=== PATIENT | female | born 1940 | race Caucasian/White ===

== ENCOUNTER 2016-09-23 10:27 | Inpatient (IN) | END 2016-09-26 15:15 | disposition home or self-care (01) | DRG 871 | DX: A41.9 Sepsis, unspecified organism (principal); G93.41 Metabolic encephalopathy; N39.0 Urinary tract infection, site not specified; F03.90 Unspecified dementia, unspecified severity, without behavioral disturbance, psychotic disturbance, mood disturbance, and anxiety; E11.9 Type 2 diabetes mellitus without complications; D64.9 Anemia, unspecified; B96.1 Klebsiella pneumoniae [K. pneumoniae] as the cause of diseases classified elsewhere; E03.9 Hypothyroidism, unspecified; Z95.0 Presence of cardiac pacemaker ==

== ENCOUNTER 2017-04-07 10:38 | Observation (INO) | payer MEDICARE, OTHER ==
[~2017-04-07] VITALS: Ht 167.6 cm; Wt 59.9 kg
[~2017-04-07 10:38] MED LIST: AMLO2.5T2 PO; ASPI-664 PO; LEVO500T72 PO; LEVO75TA5 PO; METF500T4 PO; MULTI PO; OLAN10TA7 PO; OLAN5TAB5 PO; RISP1TAB3 PO; SIMV40TA2 PO
[2017-04-07] MEDS ORDERED: SOD CHLORIDE 0.9% 1,000 ML IV STA (10:49)
--- NOTE | 2017-04-07 11:59 | RADRPT ---
PROCEDURE: XR Chest. CLINICAL INDICATION: Altered mental status .. Dyspnea TECHNIQUE: Single frontal chest x-ray. COMPARISON: 09/23/2016 FINDINGS: The lungs are clear of acute infiltrates, edema, effusions, or masses. There is a right-sided dual c hamber cardiac pacer in place unchanged. Calcific atherosclerosis of the aorta and mitral valve is p resent.. Mild cardiomegaly is unchanged.. The osseous structures are intact. IMPRESSION: No acute cardiopulmonary disease. Mild cardiomegaly with right-sided cardiac pacer. Calcific atherosclerosis of the aorta and mitral valve. RPTAT: GG .Frank Guzman MD, MD Date Time Electronically viewed and signed by .Frank Guzman MD, MD on 04/07/2017 11:59 .L/
[2017-04-07 12:01] LABS: BASOPHILS % 0.5 % (0.0-2.0); EOSINOPHILS % 0.5 % (0.0-7.0); HEMATOCRIT 33.6 % (37.0-47.0); HEMOGLOBIN 11.5 g/dl (12.0-16.0); LYMPHOCYTES # 1.2 10^3/ul (0.8-2.9); LYMPHOCYTES % 21.1 % (15.0-51.0); MEAN CORPUSCULAR HEMOGLOBIN 32.4 pg (29.0-33.0); MEAN CORPUSCULAR HGB CONC 34.2 g/dl (32.0-37.0); MEAN CORPUSCULAR VOLUME 94.6 fl (82.0-101.0); MEAN PLATELET VOLUME 11.6 fl (7.4-10.4); MONOCYTE # 0.5 10^3/ul (0.3-0.9); MONOCYTES % 8.6 % (0.0-11.0); NEUTROPHIL # 3.9 10^3/ul (1.6-7.5); NEUTROPHILS % 67.6 % (39.0-77.0); PLATELET COUNT 226 10^3/UL (140-415); RED BLOOD COUNT 3.55 10^6/ul (4.20-5.40); RED CELL DISTRIBUTION WIDTH 12.8 % (11.5-14.5); WHITE BLOOD COUNT 5.8 10^3/ul (4.8-10.8)
[2017-04-07 12:11] LABS: INR 0.91; PROTIME 12.3 Sec (12.2-14.2)
[2017-04-07 12:12] LABS: PARTIAL THROMBOPLASTIN TIME 22.4 Sec (25.0-35.0)
[2017-04-07 12:17] LABS: ALANINE AMINOTRANSFERASE 29 IU/L (13-69); ALBUMIN 3.7 g/dl (3.3-4.9); ALBUMIN/GLOBULIN RATIO 1.12; ALKALINE PHOSPHATASE 67 IU/L (42-121); ANION GAP 13 (8-16); ASPARTATE AMINO TRANSFERASE 23 IU/L (15-46); BILIRUBIN,INDIRECT 0.1 mg/dl (0-1.1); BILIRUBIN,TOTAL 0.1 mg/dl (0.2-1.3); BLOOD UREA NITROGEN 41 mg/dl (7-20); CALCIUM 9.6 mg/dl (8.4-10.2); CARBON DIOXIDE 24 mmol/L (21-31); CHLORIDE 103 mmol/L (97-110); CREATINE KINASE 44 IU/L (23-200); CREATININE 1.32 mg/dl (0.44-1.00); GLUCOSE 141 mg/dl (70-220); POTASSIUM 4.8 mmol/L (3.5-5.1); SODIUM 135 mmol/L (135-144)
[2017-04-07 12:31] LABS: TROPONIN-I < 0.012 ng/ml (0.00-0.12)
[2017-04-07 12:35] LABS: T3 UPTAKE 36.1 % (23.5-40.5)
[2017-04-07 12:40] LABS: CK-MB 3.15 ng/ml (0.0-2.4)
--- NOTE | 2017-04-07 12:40 | ERA ---
ER Documentation Chief Complaint Date/Time DATE: 04/07/17 TIME: 12:32 Chief Complaint ALOC SINCE LAST NIGHT. LKWT BEFORE BED LAST NIGHT. APHASIC ON ARRIVAL HPI This is a 76-year-old female presents to the emergency department brought in by EMS from via [facility]. The patient's last known time was at 8 PM, 15 hours prior to arrival. The patient's baseline is alert awake orientated to person place and time with occasional confusion according to nursing staff. They stated that this morning upon awakening the patient was a phasic and appeared to be agitated. EMS indicated that the patient's blood glucose was 149. Nursing staff stated the patient has not had any recent fever shaking or chills. There is no productive or nonproductive cough. The patient had not complained of any chest pain or pressure and also denied headache. She has a cardiac pacemaker and it is unknown when the pacemaker was last interrogated ROS All systems reviewed and are negative except as per history of present illness. Medications Home Meds Active Scripts Amlodipine Besylate* (Norvasc*) 2.5 Mg Tablet, 2.5 MG PO DAILY for 30 Days, TAB Prov:SAEID PAGE MD 09/26/16 Reported Medications Olanzapine* (Zyprexa*) 10 Mg Tablet, 10 MG PO QHS, #30 TAB 09/23/16 Simvastatin* (Zocor*) 40 Mg Tablet, 40 MG PO QHS, #30 TAB 09/23/16 Risperidone* (Risperidone*) 1 Mg Tablet, 1 MG PO DAILY, TAB 09/23/16 Olanzapine* (Zyprexa*) 5 Mg Tablet, 5 MG PO DAILY, #30 TAB 09/23/16 Multivitamins* (Theragran*) 1 Tab Tab, 1 TAB PO DAILY, TAB 09/23/16 Metformin Hcl* (Metformin Hcl*) 500 Mg Tablet, 500 MG PO WITH BREAKFAST DINNE, # 60 TAB 09/23/16 Levothyroxine Sodium* (Levothyroxine Sodium*) 75 Mcg Tablet, 75 MCG PO BEFORE BREAKFAST, #30 TAB 09/23/16 Aspirin* (Aspirin* EC) 81 Mg Tablet.dr, 81 MG PO DAILY, TAB 09/23/16 Discontinued Scripts Levofloxacin* (Levaquin*) 500 Mg Tablet, 500 MG PO DAILY for 7 Days, TAB Prov:SAEID PAGE MD 09/26/16 Allergies Allergies: Coded Allergies: No Known Allergy (Unverified , 09/23/16) PMhx/Soc Hx Cardiac Disorders: Yes (HTN) Hx Psychiatric Problems: No Hx Miscellaneous Medical Probl: Yes (HYPOTHYROIDISM) Hx Alcohol Use: No Hx Substance Use: No Hx Tobacco Use: No Smoking Status: Never smoker Physical Exam Vitals Vital Signs Date Time Temp Pulse Resp B/P Pulse Ox O2 Delivery O2 Flow Rate FiO2 04/07/17 14:09 91 22 157/98 99 Room Air 04/07/17 10:47 97.1 107 20 136/90 98 Physical Exam Constitutional:Well-developed. Well-nourished. HEENT:Normocephalic. Atraumatic.Pupils were equal round reactive to light. Dry mucous membranes.No tonsillar exudates. Neck: No nuchal rigidity. No lymphadenopathy. No posterior cervical spine tenderness or step-offs. Respiratory: Not using accessory muscles of respiration.Lungs were clear to auscultation bilaterally. No rhonchi. No rales. No wheezing. Cardiovascular: Regular rate regular rhythm.No murmurs. No rubs were appreciated.S1, S2 normal. Distal pulses are palpable 2+ bilaterally. GI: Abdomen was soft. Nontender. Non Distended. No pulsatile abdominal masses or bruits. No rebound. No guarding. Bowel sounds were present and normal. Muscle skeletal: The bilateral upper extremities but did not follow verbal commands of muscular strength testing was unable to be performed Skin: No petechia, no purpura. No lesions on the palms or the soles of the feet. No maculopapular rash. NEURO: Patient was alert, awake, however patient was a phasic. Patient did not follow verbal command. Gait not observed. Result Diagram: 04/07/17 1133 04/07/17 1133 Results 24 hrs Laboratory Tests Test 04/07/17 11:33 White Blood Count 5.810^3/ul Red Blood Count 3.5510^6/ul Hemoglobin 11.5g/dl Hematocrit 33.6% Mean Corpuscular Volume 94.6fl Mean Corpuscular Hemoglobin 32.4pg Mean Corpuscular Hemoglobin Concent 34.2g/dl Red Cell Distribution Width 12.8% Platelet Count 38024^3/UL Mean Platelet Volume 11.6fl Neutrophils % 67.6% Lymphocytes % 21.1% Monocytes % 8.6% Eosinophils % 0.5% Basophils % 0.5% Nucleated Red Blood Cells % 0.0/100WBC Neutrophils # 3.910^3/ul Lymphocytes # 1.210^3/ul Monocytes # 0.510^3/ul Eosinophils # 0.010^3/ul Basophils # 0.010^3/ul Nucleated Red Blood Cells # 0.010^3/ul Prothrombin Time 12.3Sec Prothrombin Time Ratio 1.0 INR International Normalized Ratio 0.91 Activated Partial Thromboplast Time 22.4Sec Sodium Level 135mmol/L Potassium Level 4.8mmol/L Chloride Level 103mmol/L Carbon Dioxide Level 24mmol/L Anion Gap 13 Blood Urea Nitrogen 41mg/dl Creatinine 1.32mg/dl Glucose Level 141mg/dl Calcium Level 9.6mg/dl Total Bilirubin 0.1mg/dl Direct Bilirubin 0.00mg/dl Indirect Bilirubin 0.1mg/dl Aspartate Amino Transf (AST/SGOT) 23IU/L Alanine Aminotransferase (ALT/SGPT) 29IU/L Alkaline Phosphatase 67IU/L Creatine Kinase 44IU/L Creatine Kinase Index 7.2 Creatinine Kinase MB (Mass) 3.15ng/ml Troponin I < 0.012ng/ml Total Protein 7.0g/dl Albumin 3.7g/dl Globulin 3.30g/dl Albumin/Globulin Ratio 1.12 Free Thyroxine Index 3.47ug/ml Thyroxine (T4) 9.6ug/dl Triiodothyronine (T3) Uptake 36.1% Current Medications Medications (Trade) Dose Ordered Sig/Yamel Route PRN Reason Start Time Stop Time Status Last Admin Dose Admin Sodium Chloride (NS) 1,000 ml @ 1,000 mls/hr Q1H STAT IV 04/07/17 10:49 04/07/17 11:48 DC 04/07/17 11:24 Aspirin (Aspirin) 81 mg ONCE ONCE PO 04/07/17 14:30 04/07/17 14:31 Procedures/MDM The patient presented to the emergency department with an acute and persistent change in their mental status. The differential diagnosis is diverse however reversible causes such as hypoglycemia, opiate overdose, thiamine deficiency were immediately considered. The patient was placed on a front desk monitor, continuous pulse oximetry and IV access was established. The patients airway was secure however hypoxic events such as anemia, shock, or severe pulmonary disease were all considered as etiologies in this patients presentation. Circulation assessed with good cap refill and did not require fluids or pressure support. Finger stick for rapid glucose determined to be normal. 12 Lead EKG tracing ordered and reviewed by myself showed: Ventricular rate is 100 bpm with ventricular paced rhythm and no arrhythmia. OK interval normal. QRS duration widened 170 ms due to paced rhythm No ST segment elevation No ST segment depression. No changes consistent with acute ischemia. One view chest radiograph were reviewed by myself indicated the following: No acute cardiopulmonary disease. Mild cardiomegaly with right-sided cardiac pacer. Calcific atherosclerosis of the aorta and mitral valve. Patient had prerenal azotemia and was given a liter bolus of 0.9 normal saline. Given that the patient had a new focal neurological deficit of aphasia a CT scan of the patient's head was obtained which showed no acute intracerebral hemorrhage mass-effect or midline shift. The patient did receive aspirin but was not a TPA candidate given that the onset of her symptoms occurred over 14 hours prior to arrival. A Ferrari catheter was placed in order to obtain the patient's urine given that she was unable to ambulate. A urine culture will be sent. The patient will be admitted to the hospitalist in serious condition for further evaluation into her neurological deficits and IV fluids for dehydration Departure Diagnosis: Primary Impression: Prerenal azotemia Additional Impression: Aphasia Condition: Serious MICHAEL MELENDEZ Apr 07, 2017 12:40
--- NOTE | 2017-04-07 13:36 | RADRPT ---
PROCEDURE: CT Brain without contrast. CLINICAL INDICATION: Altered mental status. TECHNIQUE: A CT of the brain without contrast was performed utilizing axial sections from the skul l base through the vertex. The patient was scanned without intravenous contrast enhancement. Sagitta l and coronal reformatted images were obtained using the data from the axial images. Total exam DLP is 720.23 mGy-cm. CTDIvol is 44.68 mGy. One or more of the following dose reduction techniques were used: Automated exposure control, adjustment of the mA and/or kV according to patient size, use of iterative reconstruction technique. COMPARISON: 09/23/2016. FINDINGS: There is normal gleason-white matter differentiation. There is enlargement of the ventricles and subarachnoid spaces consistent with atrophy. There is decreased attenuation of the periventricular white matter consistent with microangiopathic ischemic change. There is a small left bush radiata lacunar infarct, unchanged. There is no intracranial hemorrhage or space-occupying lesion. There are vascular calcifications consistent with atherosclerosis. There is no skull fracture or lytic lesion. IMPRESSION: 1. Atrophy. 2. Microangiopathic ischemic change. 3. Atherosclerosis. 4. Small left bush radiata lacunar infarct, unchanged. 5. Otherwise unremarkable noncontrast CT scan of the brain. RPTAT: QQ .Raf Benitez MD, MD Date Time Electronically viewed and signed by .Raf Benitez MD, on 04/07/2017 13:35 .R/
[2017-04-07] MEDS ORDERED: ASPIRIN 81 MG TAB PO ONE (14:30)
[2017-04-07] MEDS ORDERED: SOD CHLORIDE 0.9% 1,000 ML IV SCH (14:37)
[2017-04-07] MEDS ORDERED: morphine 2 MG INJ IV PRN (15:00)
[2017-04-07] MEDS ORDERED: BISACODYL (EC) 5 MG TAB PO PRN (15:00)
[2017-04-07] MEDS ORDERED: ONDANSETRON 4 MG INJ IV PRN (15:00)
[2017-04-07] MEDS ORDERED: NACL 0.9% 3 ML SYG IV SCH (15:00)
[2017-04-07] MEDS ORDERED: ASPIRIN 300 MG SUPP PR ONE (15:00)
[2017-04-07 15:05] LABS: ADD UMIC NO; UR ASCORBIC ACID NEGATIVE (NEGATIVE); UR BILIRUBIN (Dip) NEGATIVE (NEGATIVE); UR BLOOD (Dip) NEGATIVE (NEGATIVE); UR CLARITY CLEAR (CLEAR); UR COLOR STRAW (YELLOW); UR GLUCOSE (Dip) NEGATIVE (NEGATIVE); UR KETONES (Dip) NEGATIVE (NEGATIVE); UR LEUKOCYTE ESTERASE (Dip) NEGATIVE Leu/ul (NEGATIVE); UR NITRITE (Dip) NEGATIVE (NEGATIVE); UR SPECIFIC GRAVITY (Dip) 1.003 (1.003-1.030); UR TOTAL PROTEIN (Dip) NEGATIVE (NEGATIVE); UR UROBILINOGEN (Dip) NEGATIVE (NEGATIVE)
--- NOTE | 2017-04-07 15:20 | HP ---
Date/Time of Note Date/Time of Note DATE: 04/07/17 TIME: 15:07 Assessment/Plan VTE Prophylaxis VTE Prophylaxis Intervention: SCD's Lines/Catheters Urinary Cath still in place: Yes Reason Cath still needed: terminal illness/intractable pain Assessment/Plan Chief Complaint/Hosp Course Patient is a 76-year-old female from a intermediate with past medical history of dementia and CVA as well as psych issues who presents to [facility] for altered mentation, likely back to baseline Altered mental status, resolving Volume depletion, secondary to BUN/creatinine ratio and history normocytic anemia, however chronic Mildly elevated CK-MB, no troponin elevation CKD versus acute kidney injury Dementia Psych disorder Hypothyroidism Hypertension Unknown pacemaker placement History of lacunar CVA Plan -It appears patient is back to baseline per previous discharge summary as current physical exam is present consistent with previous discharge physical exam, likely secondary to volume depletion as patient recovered spontaneously with a 1 L bolus. -Urinalysis does show dilute urine, however the urinalysis was taken after patient already received 1 L of fluids. -CT noted, no acute change from previous, holding off on MRI as patient appears to be back to baseline -Swallow study ordered, will resume home meds once patient passes swallow study -We will repeat CK-MB in approximately 6-7 hours as isolated CK-MB with no troponin elevation and no other symptoms may be secondary to von depletion and not acute myocardial infarction -Patient's blood pressure is elevated, will use as needed's for now as patient has swallow study plan -We will monitor overnight, patient may need longer-term plans for feeding in the future given her mental status -Additional labs ordered to monitor thyroid function as well as ammonia levels, however unlikely culprit given patient's improving mental status with fluids. Problems: HPI/ROS Admit Date/Time Admit Date/Time Hx of Present Illness Patient is a 76-year-old female who was brought in from a intermediate with a past medical history of diabetes, dementia, psych disorder, hypothyroidism hypertension who presents to [facility] after staff at the intermediate found her more altered than usual. Patient was found to not respond to verbal cues and was transported to [facility]. In the ED patient was evaluated and head CT was done, which did not show any new acute findings when compared to the previous CT done approximately 6 months ago , patient was given 1 L of fluids and upon evaluation patient appeared to be back to previous baseline level upon discharge 6 months ago. Patient easily tracks and does respond to verbal command, however it is not necessarily in response to your particular question. Patient does say yes or no appropriately at times however does not follow cues or commands when performing physical exam. Patient does not appear to be in overt discomfort and current exam is consistent with previous discharge. The majority of the HPI is difficult to complete given patient's mental status and lack of information from intermediate. PMH: Diabetes, dementia, psych disorder, hypothyroidism, hypertension, pacemaker for unknown reason, dyslipidemia, CVA PSH: Unknown Social: Unknown Meds: Last recorded medications were olanzapine, simvastatin, Risperdal, metformin, levothyroxine, aspirin, amlodipine PMH/Family/Social Social History Smoking Status: Never smoker Exam/Review of Systems Vital Signs Vitals Vital Signs Date Time Temp Pulse Resp B/P Pulse Ox O2 Delivery O2 Flow Rate FiO2 04/07/17 14:09 91 22 157/98 99 Room Air 04/07/17 10:47 97.1 Exam Exam Physical exam General: Patient is laying in bed, no acute distress, thin Mentation: Patient easily tracks and responds with random words to questions, occasional correct "yes" or "no" question Head: Normocephalic atraumatic Eyes: EOMI, pupils reactive to light Neck: Supple, nontender, midline Respiratory: Clear to auscultation bilaterally Cardiovascular: regular rate, no obvious murmurs, paced Gastrointestinal: non-tender to palpation, bowel sounds heard. Neurological: Moves all extremities spontaneously, but not to command. Labs Result Diagram: 04/07/17 1133 04/07/17 1133 Medications Medications Current Medications Aspirin (Aspirin) 81 mg ONCE ONCE PO ; Start 04/07/17 at 14:30; Stop 04/07/17 at 14:31 ASTRID VALENCIA Apr 07, 2017 15:17
[2017-04-07] MEDS ORDERED: LABETALOL HCL 20MG INJ IV PRN (15:30)
[2017-04-07] MEDS ORDERED: hydrALAzine 20 MG INJ IV PRN (15:30)
[2017-04-07] MEDS ORDERED: DEXTROSE 50% 50 ML SYRINGE IV PRN ×2 (17:00)
[2017-04-07] MEDS ORDERED: GLUCOSE GEL 15 GRAM TUBE PO PRN ×2 (17:00)
[2017-04-07] MEDS ORDERED: GLUCAGON 1 MG INJ IM PRN (17:00)
[2017-04-07] MEDS ORDERED: GLUCOSE GEL 15 GRAM TUBE BUCCAL PRN (17:00)
[2017-04-07] MEDS: INSULIN ASPART [NOVOLOG] 3 ML PEN SC SCH ×2 (17:43→21:00)
[2017-04-07 18:16] VITALS: PULSE 97
[2017-04-07 20:06] VITALS: PULSE 75
[2017-04-07 20:35] VITALS: BP 153/75; RESP 20
[2017-04-07] MEDS: DEXTROSE 5%-0.45% NACL 1,000 ML IV SCH (20:50)
[2017-04-07] MEDS ORDERED: ATORVASTATIN 20 MG TAB PO SCH (21:00)
[2017-04-08] VITALS (8 sets, daily range): BP systolic 114–145; BP diastolic 56–65; PULSE 72–78; RESP 18; Ht 167.6 cm; Wt 59.9 kg
[2017-04-08] MEDS ORDERED: ACCU-CHEK XX SCH (02:00)
[2017-04-08] MEDS: LEVOTHYROXINE 75 MCG TAB PO SCH ×2 (07:00→07:51)
[2017-04-08] MEDS: INSULIN ASPART [NOVOLOG] 3 ML PEN SC SCH ×3 (07:37→17:55)
[2017-04-08] MEDS ORDERED: RISPERIDONE 1 MG TAB PO SCH (09:00)
[2017-04-08] MEDS ORDERED: OLANZAPINE 5 MG TAB PO SCH (09:00)
[2017-04-08] MEDS ORDERED: MULTIVITAMINS THERAPEUTIC TAB PO SCH (09:00)
[2017-04-08] MEDS ORDERED: ASPIRIN (EC) 81 MG TAB PO SCH (09:00)
[2017-04-08] MEDS ORDERED: AMLODIPINE 2.5 MG TAB PO SCH (09:00)
[2017-04-08 10:09] LABS: BASOPHILS % 0.5 % (0.0-2.0); EOSINOPHILS % 0.5 % (0.0-7.0); HEMATOCRIT 31.3 % (37.0-47.0); HEMOGLOBIN 10.5 g/dl (12.0-16.0); LYMPHOCYTES # 0.7 10^3/ul (0.8-2.9); LYMPHOCYTES % 11.7 % (15.0-51.0); MEAN CORPUSCULAR HEMOGLOBIN 31.9 pg (29.0-33.0); MEAN CORPUSCULAR HGB CONC 33.5 g/dl (32.0-37.0); MEAN CORPUSCULAR VOLUME 95.1 fl (82.0-101.0); MEAN PLATELET VOLUME 11.8 fl (7.4-10.4); MONOCYTE # 0.6 10^3/ul (0.3-0.9); MONOCYTES % 9.9 % (0.0-11.0); NEUTROPHIL # 4.7 10^3/ul (1.6-7.5); NEUTROPHILS % 76.7 % (39.0-77.0); PLATELET COUNT 247 10^3/UL (140-415); RED BLOOD COUNT 3.29 10^6/ul (4.20-5.40); RED CELL DISTRIBUTION WIDTH 13.1 % (11.5-14.5); WHITE BLOOD COUNT 6.1 10^3/ul (4.8-10.8)
[2017-04-08 10:30] LABS: ALBUMIN 3.2 g/dl (3.3-4.9); ALBUMIN/GLOBULIN RATIO 1.06; BILIRUBIN,INDIRECT 0.1 mg/dl (0-1.1); BILIRUBIN,TOTAL 0.1 mg/dl (0.2-1.3); CALCIUM 9.2 mg/dl (8.4-10.2); CREATININE 1.3 mg/dl (0.44-1.00); POTASSIUM 4.3 mmol/L (3.5-5.1); TOTAL PROTEIN 6.2 g/dl (6.1-8.1)
[2017-04-08 10:43] LABS: CK-MB 1.73 ng/ml (0.0-2.4); TROPONIN-I 0.031 ng/ml (0.00-0.12)
[2017-04-08] MEDS: DEXTROSE 5%-0.45% NACL 1,000 ML IV SCH (10:48)
--- NOTE | 2017-04-08 16:18 | DS ---
Date/Time of Note Date/Time of Note DATE: 04/08/17 TIME: 16:18 Discharge Summary Admission/Discharge Info Admit Date/Time Apr 07, 2017 at 14:11 Discharge Date/Time Patient Condition: Stable Hx of Present Illness Patient is a 76-year-old female who was brought in from a [place] [facility] with a past medical history of diabetes, dementia, psych disorder, hypothyroidism hypertension who presents to [facility] after staff at the [place] [facility] found her more altered than usual. Patient was found to not respond to verbal cues and was transported to [facility]. In the ED patient was evaluated and head CT was done, which did not show any new acute findings when compared to the previous CT done approximately 6 months ago , patient was given 1 L of fluids and upon evaluation patient appeared to be back to previous baseline level upon discharge 6 months ago. Patient easily tracks and does respond to verbal command, however it is not necessarily in response to your particular question. Patient does say yes or no appropriately at times however does not follow cues or commands when performing physical exam. Patient does not appear to be in overt discomfort and current exam is consistent with previous discharge. The majority of the HPI is difficult to complete given patient's mental status and lack of information from [place] [facility]. PMH: Diabetes, dementia, psych disorder, hypothyroidism, hypertension, pacemaker for unknown reason, dyslipidemia, CVA PSH: Unknown Social: Unknown Meds: Last recorded medications were olanzapine, simvastatin, Risperdal, metformin, levothyroxine, aspirin, amlodipine Hospital Course Patient is a 76-year-old female from a [place] [facility] with past medical history of dementia and CVA as well as psych issues who presents to [facility] for altered mentation, likely back to baseline. Patient was admitted and evaluated in the ED in the hospital, however patient's mentation appeared to spontaneously resolve after receiving IV fluids. Labs returned to within normal limits for patient. Upon speech therapy evaluation, patient was only cleared for nectar thick liquids as thin liquids cause patient to show signs of aspiration. It is recommended that patient continue speech therapy at the senior care facility. Patient is also recommended to continue physical and occupational therapy one back at the facility. Patient is to continue medications that she was on prior to admission and it is very important that the staff at the facility monitor patient's hydration level. Due to patient's mental state, she may need other means of nutrition including PEG tube in the future. Altered mental status, resolving, back to baseline Volume depletion, secondary to BUN/creatinine ratio and history normocytic anemia, however chronic Mildly elevated CK-MB, no troponin elevation, resolved CKD versus acute kidney injury, improving Dementia Psych disorder Hypothyroidism Hypertension Unknown pacemaker placement History of lacunar CVA Home Meds Active Scripts Amlodipine Besylate* (Norvasc*) 2.5 Mg Tablet, 2.5 MG PO DAILY for 30 Days, TAB Prov:SAEID PAGE MD 09/26/16 Reported Medications Olanzapine* (Zyprexa*) 10 Mg Tablet, 10 MG PO QHS, #30 TAB 09/23/16 Simvastatin* (Zocor*) 40 Mg Tablet, 40 MG PO QHS, #30 TAB 09/23/16 Risperidone* (Risperidone*) 1 Mg Tablet, 1 MG PO DAILY, TAB 09/23/16 Olanzapine* (Zyprexa*) 5 Mg Tablet, 5 MG PO DAILY, #30 TAB 09/23/16 Multivitamins* (Theragran*) 1 Tab Tab, 1 TAB PO DAILY, TAB 09/23/16 Metformin Hcl* (Metformin Hcl*) 500 Mg Tablet, 500 MG PO WITH BREAKFAST DINNE, # 60 TAB 09/23/16 Levothyroxine Sodium* (Levothyroxine Sodium*) 75 Mcg Tablet, 75 MCG PO BEFORE BREAKFAST, #30 TAB 09/23/16 Aspirin* (Aspirin* EC) 81 Mg Tablet.dr, 81 MG PO DAILY, TAB 09/23/16 Discontinued Scripts Levofloxacin* (Levaquin*) 500 Mg Tablet, 500 MG PO DAILY for 7 Days, TAB Prov:SAEID PAGE MD 09/26/16 Primary Care Provider Not On Staff Doctor Time spent on discharge: > 30 minutes Pending Labs Laboratory Tests Test 04/07/17 16:34 04/07/17 17:42 04/07/17 22:17 04/08/17 07:37 Ammonia < 9umol/l (-) Bedside Glucose 137mg/dL (70-220) 122mg/dL (70-220) 131mg/dL (70-220) Test 04/08/17 09:40 04/08/17 11:38 White Blood Count 6.110^3/ul (4.8-10.8) Red Blood Count 3.2910^6/ul (4.20-5.40) Hemoglobin 10.5g/dl (12.0-16.0) Hematocrit 31.3% (37.0-47.0) Mean Corpuscular Volume 95.1fl (82.0-101.0) Mean Corpuscular Hemoglobin 31.9pg (29.0-33.0) Mean Corpuscular Hemoglobin Concent 33.5g/dl (32.0-37.0) Red Cell Distribution Width 13.1% (11.5-14.5) Platelet Count 36315^3/UL (140-415) Mean Platelet Volume 11.8fl (7.4-10.4) Neutrophils % 76.7% (39.0-77.0) Lymphocytes % 11.7% (15.0-51.0) Monocytes % 9.9% (0.0-11.0) Eosinophils % 0.5% (0.0-7.0) Basophils % 0.5% (0.0-2.0) Nucleated Red Blood Cells % 0.0/100WBC (0.0-0.0) Neutrophils # 4.710^3/ul (1.6-7.5) Lymphocytes # 0.710^3/ul (0.8-2.9) Monocytes # 0.610^3/ul (0.3-0.9) Eosinophils # 0.010^3/ul (0.0-0.5) Basophils # 0.010^3/ul (0.0-0.1) Nucleated Red Blood Cells # 0.010^3/ul (0.0-0.0) Sodium Level 138mmol/L (135-144) Potassium Level 4.3mmol/L (3.5-5.1) Chloride Level 107mmol/L (97-110) Carbon Dioxide Level 24mmol/L (21-31) Anion Gap 11 (8-16) Blood Urea Nitrogen 31mg/dl (7-20) Creatinine 1.30mg/dl (0.44-1.00) Glucose Level 201mg/dl (70-220) Calcium Level 9.2mg/dl (8.4-10.2) Total Bilirubin 0.1mg/dl (0.2-1.3) Direct Bilirubin 0.00mg/dl (0.00-0.20) Indirect Bilirubin 0.1mg/dl (0-1.1) Aspartate Amino Transf (AST/SGOT) 22IU/L (15-46) Alanine Aminotransferase (ALT/SGPT) 25IU/L (13-69) Alkaline Phosphatase 58IU/L (42-121) Creatine Kinase 57IU/L (23-200) Creatine Kinase Index 3.0 Creatinine Kinase MB (Mass) 1.73ng/ml (0.0-2.4) Troponin I 0.031ng/ml (0.00-0.12) Total Protein 6.2g/dl (6.1-8.1) Albumin 3.2g/dl (3.3-4.9) Globulin 3.00g/dl (1.3-3.2) Albumin/Globulin Ratio 1.06 Bedside Glucose 153mg/dL (70-220) ASTRID VALENCIA Apr 08, 2017 16:18
--- NOTE | 2017-04-08 16:43 | PDOCDIS ---
Discharge Instructions CONDITION Patient Condition: Fair HOME CARE INSTRUCTIONS: Special Diet: PUREED ACTIVITY: Activity Restrictions: Slowly Increase Activity FOLLOW UP/APPOINTMENTS Follow-up Plan 1. Please follow up with your primary care provider as soon a possible. 2. Remember to maintain hydration, as this can cause altered mental state. 3. [place] thick purred liquids for now 4. Need speech therapy and physical therapy outpatient. ASTRID VALENCIA Apr 08, 2017 16:42
== END 2017-04-08 18:50 | disposition home or self-care (01) ==
LOC: E/R 10:38 → TEL 14:11 → E/R 18:19
PROVIDERS: ADMIT Internal Medicine; ATTEND Internal Medicine
DX: R41.82 Altered mental status, unspecified (principal); R79.89 Other specified abnormal findings of blood chemistry; R47.01 Aphasia; Z86.73 Personal history of transient ischemic attack (TIA), and cerebral infarction without residual deficits; I12.9 Hypertensive chronic kidney disease with stage 1 through stage 4 chronic kidney disease, or unspecified chronic kidney disease; N18.9 Chronic kidney disease, unspecified; N17.9 Acute kidney failure, unspecified; F03.90 Unspecified dementia, unspecified severity, without behavioral disturbance, psychotic disturbance, mood disturbance, and anxiety; E03.9 Hypothyroidism, unspecified; E11.22 Type 2 diabetes mellitus with diabetic chronic kidney disease; Z96.89 Presence of other specified functional implants
CPT/HCPCS: 70450; 71010; 80053; 81003; 82140; 82550; 82553; 82962; 84436; 84479; 84484; 85025; 85610; 85730; 87040; 87081; 87086; 92610; 93005; 96372; 97167; 99285; G0378; G8978; G8979; G8996; G8997; G8998; J1815; J7030; J7042

== ENCOUNTER 2017-06-10 23:56 | Inpatient (IN) | payer MEDICARE ==
[~2017-06-10] VITALS: Ht 160 cm; Wt 70.0 kg
[~2017-06-10 23:56] MED LIST changes: -LEVO500T72 PO; -OLAN10TA7 PO
[2017-06-10 23:59] VITALS: Ht 160 cm; Wt 70.0 kg
--- NOTE | 2017-06-10 23:59 | ERD ---
ER Documentation Chief Complaint Chief Complaint Altered level of consciousness HPI The patient is 76-year-old female, presenting to the ER from assisted living because of altered level of consciousness of unknown duration. She is unable to provide the history, the history is obtained from the shank threader and medical record Past medical history: Dyslipidemia, psychiatric illness, diabetes mellitus, hypothyroidism, dementia, history of CVA, hypertension, CAD, anemia Past surgical history: Pacemaker ROS All systems reviewed and are negative except as per history of present illness. Medications Home Meds Active Scripts Amlodipine Besylate* (Norvasc*) 2.5 Mg Tablet, 2.5 MG PO DAILY for 30 Days, TAB Prov:SAEID PAGE MD 09/26/16 Reported Medications Simvastatin* (Zocor*) 40 Mg Tablet, 40 MG PO QHS, #30 TAB 09/23/16 Risperidone* (Risperidone*) 1 Mg Tablet, 1 MG PO DAILY, TAB 09/23/16 Olanzapine* (Zyprexa*) 5 Mg Tablet, 5 MG PO DAILY, #30 TAB 09/23/16 Multivitamins* (Theragran*) 1 Tab Tab, 1 TAB PO DAILY, TAB 09/23/16 Metformin Hcl* (Metformin Hcl*) 500 Mg Tablet, 500 MG PO WITH BREAKFAST DINNE, # 60 TAB 09/23/16 Levothyroxine Sodium* (Levothyroxine Sodium*) 75 Mcg Tablet, 75 MCG PO BEFORE BREAKFAST, #30 TAB 09/23/16 Aspirin* (Aspirin* EC) 81 Mg Tablet.dr, 81 MG PO DAILY, TAB 09/23/16 Allergies Allergies: Coded Allergies: No Known Allergy (Unverified , 09/23/16) PMhx/Soc Hx Respiratory Disorders: No Hx Psychiatric Problems: Yes Hx Miscellaneous Medical Probl: Yes (dementia, CVA, psych d/o, HTN, PMplacement , DM) Physical Exam Vitals Vital Signs Date Time Temp Pulse Resp B/P Pulse Ox O2 Delivery O2 Flow Rate FiO2 06/11/17 00:20 96.8 84 16 161/94 98 Room Air 06/10/17 23:59 95.5 98 24 186/105 100 Physical Exam Const: No acute distress. Head: Atraumatic. Eyes: Normal Conjunctiva. ENT: Normal External Ears, Nose and Mouth. Neck: Full range of motion. No meningismus. Resp: Clear to auscultation bilaterally. Cardio: Regular rate and rhythm. Abd: Soft, non distended, normal bowel sounds, non tender. Skin: No petechiae or rashes. Back: No midline or flank tenderness. Ext: No cyanosis, or edema. Neur: Unable to perform due to her condition, she is moving all extremities Psych: Unable to perform due to her condition Result Diagram: 06/11/17 0025 06/11/17 0025 Results 24 hrs Laboratory Tests Test 06/11/17 00:25 06/11/17 00:44 White Blood Count 7.810^3/ul Red Blood Count 3.8610^6/ul Hemoglobin 12.4g/dl Hematocrit 35.7% Mean Corpuscular Volume 92.5fl Mean Corpuscular Hemoglobin 32.1pg Mean Corpuscular Hemoglobin Concent 34.7g/dl Red Cell Distribution Width 12.8% Platelet Count 95194^3/UL Mean Platelet Volume 12.1fl Neutrophils % 60.9% Lymphocytes % 27.2% Monocytes % 8.8% Eosinophils % 1.5% Basophils % 0.6% Nucleated Red Blood Cells % 0.0/100WBC Neutrophils # 4.710^3/ul Lymphocytes # 2.110^3/ul Monocytes # 0.710^3/ul Eosinophils # 0.110^3/ul Basophils # 0.110^3/ul Nucleated Red Blood Cells # 0.010^3/ul Prothrombin Time 11.7Sec Prothrombin Time Ratio 0.9 INR International Normalized Ratio 0.86 Activated Partial Thromboplast Time 24.1Sec Urine Color YELLOW Urine Clarity CLOUDY Urine pH 6.0 Urine Specific [place] 1.004 Urine Ketones NEGATIVEmg/dL Urine Nitrite NEGATIVEmg/dL Urine Bilirubin NEGATIVEmg/dL Urine Urobilinogen NEGATIVEmg/dL Urine Leukocyte Esterase 3+Rayna/ul Urine Microscopic RBC 4/HPF Urine Microscopic WBC 180/HPF Urine Bacteria MANY/HPF Urine Hemoglobin NEGATIVEmg/dL Urine Glucose NEGATIVEmg/dL Urine Total Protein NEGATIVEmg/dl Sodium Level 133mmol/L Potassium Level 4.4mmol/L Chloride Level 96mmol/L Carbon Dioxide Level 23mmol/L Anion Gap 18 Blood Urea Nitrogen 27mg/dl Creatinine 1.12mg/dl Glucose Level 131mg/dl Lactic Acid Level 4.9mmol/L Calcium Level 10.0mg/dl Total Bilirubin 0.1mg/dl Direct Bilirubin 0.00mg/dl Indirect Bilirubin 0.1mg/dl Aspartate Amino Transf (AST/SGOT) 27IU/L Alanine Aminotransferase (ALT/SGPT) 34IU/L Alkaline Phosphatase 83IU/L Troponin I 0.025ng/ml Total Protein 7.3g/dl Albumin 4.0g/dl Globulin 3.30g/dl Albumin/Globulin Ratio 1.21 Ethyl Alcohol Level Pending Bedside Urine pH (LAB) 5.5 Bedside Urine Protein (LAB) Trace Bedside Urine Glucose (UA) Negative Bedside Urine Ketones (LAB) Negative Bedside Urine Blood Trace-lysed Bedside Urine Nitrite (LAB) Negative Bedside Urine Leukocyte Esterase (L 1+ Current Medications Medications (Trade) Dose Ordered Sig/Yamel Route PRN Reason Start Time Stop Time Status Last Admin Dose Admin Sodium Chloride 2,170 ml @ 2,170 mls/hr BOLUS X1 ONCE IV 06/11/17 01:30 06/11/17 02:29 06/11/17 01:40 Vancomycin HCl 250 ml @ 125 mls/hr ONCE IVPB 06/11/17 01:30 06/11/17 03:29 Piperacillin Sod/ Tazobactam Sod (Zosyn 3.375gm/ 50 ml (Pmx)) 50 ml @ 100 mls/hr ONCE ONCE IV 06/11/17 01:30 06/11/17 01:59 06/11/17 01:39 Procedures/MDM TSH, ETOH, UDS: Pending [place] [id number] Radiology Main Line: [phone] DIAGNOSTIC IMAGING REPORT Patient: MARK GARCIA : 1940 Age: 76 Sex: F MR #: [id number] DOS: 06/11/17 0001 Ordering MD: DANGELO HARTLEY MD Location: E/R Room/Bed: PROCEDURE: CHEST - 1 VIEW CLINICAL INDICATION: 76-year-old female with shortness of breath and sepsis. TECHNIQUE: A single frontal AP upright portable view of the chest was performed. The images were reviewed on a PACS workstation. COMPARISON: CR CHEST 09/23/2016 FINDINGS: There is a right-sided dual chamber pacemaker. The cardiomediastinal silhouette is mildly enlarged. There is a calcified mitral annulus present. The thoracic aortic arch is calcified. Chronic lung changes are present. There is a shallow inspiration. There is mild bibasilar subsegmental atelectasis. There is no evidence for an infiltrate. There is no evidence for congestive heart failure. There is no evidence for pneumothorax. The osseous structures are intact. IMPRESSION: 1. Right-sided dual chamber pacemaker. 2. Cardiomegaly with calcified mitral annulus. 3. Calcified thoracic aortic arch. 4. Chronic lung changes. 5. Shallow inspiration. 6. Mild bibasilar subsegmental atelectasis. .Flavio Lino MD, MD Date Time Electronically viewed and signed by .Flavio Lino MD, MD on 06/11/2017 00:36 .M/ CC: DANGELO HARTLEY MD [place] [id number] Radiology Main Line: [phone] DIAGNOSTIC IMAGING REPORT Patient: MARK GARCIA : 1940 Age: 76 Sex: F MR #: [id number] DOS: 06/11/17 0001 Ordering MD: DANGELO HARTLEY MD Location: E/R Room/Bed: PROCEDURE: CT Brain without contrast. CLINICAL INDICATION: Altered level of consciousness. TECHNIQUE: A CT of the brain was performed on a multislice detector CT scanner utilizing axial sections from the skull base through the vertex without contrast. Images were reviewed on a high-resolution PACS workstation. Exam CTDlvol = 45 mGy and DLP = 720 mGy-cm. One of the following 3 dose reduction techniques were used: Automated exposure control; adjustment of the mA and/or kV according to patient size; or use of iterative reconstruction technique. DICOM images are available. COMPARISON: 04/07/2017 FINDINGS: There is age appropriate central and peripheral atrophy. There is no midline shift. There is a moderate degree of supratentorial periventricular and subcortical white matter hypodensities. There is no definite acute stroke. There is no mass lesion. There is no intracranial hemorrhage or abnormal extra- axial fluid collection. Visualized paranasal sinuses are clear. IMPRESSION: 1. No acute intracranial abnormality. 2. Nonspecific white matter changes most commonly seen with microvascular ischemic disease. RPTAT: HMVK .Dangelo Galicia MD, Date Time Electronically viewed and signed by .Dangelo Galicia MD, on 06/11/2017 01:32 .K/ CC: DANGELO HARTLEY MD EKG: Read by emergency physician Rate/Rhythm: Pacer at 95 beats/min No further attempting to put the EKG MEDICAL MAKING DECISION: The patient is a 76-year-old female, presenting with acute metabolic encephalopathy, acute septic shock due to acute cystitis. She was treated with Ferrari catheter, normosaline 30 mL/kg IV, vancomycin IV, Zosyn IV for acute septic shock. X The differential diagnoses considered include but are not limited to pneumonia, UTI, pyelonephritis, septic encephalopathy, metabolic encephalopathy Admit MDM: Patient's infectious symptoms have not stabilized and the patient is at risk of rapid decompensation. The patient will be admitted for careful hydration, antibiotic therapy, and infectious source control. Severe Sepsis criteria: Infectious source: UTI End organ damage indicated by: Lactate > 2.0 mmol/L Sepsis Management: Time of recognition of severe sepsis/septic shock:1:20 am Within 3 hours of recognition: Blood cultures x 2 before broad-spectrum antibiotics: Yes 30 ml/kg NS bolus completed Initial lactate 4.9 Repeat lactate pending Septic Shock Assessment: Any lactic acid > 4.0 yes Persistent hypotension (SBP < 90 or 40 mmHg drop, MAP < 65) despite 30 mL/kg IV fluid bolusno Volume Re-assessment for Septic Shock (post 30 ml/kg bolus): Temp96.8, BP159/39, HR94, RR18, Pox96% on RA Heart regular rate & rhythm Lungs no crackles Skin Warm & dry Cap Refill less than 2 seconds Peripheral pulses radially present Persistent Hypotension Treatment: Comfort care no Central line na Vasopressor started na I considered further perfusion assessment with CVP measurement, SCVO2, bedside ultrasound volume assessment, passive leg raise, trial of further fluid bolus. And proceeded withivf Critical Care: Critical care time 35 minutes excluding billable procedures Emergent fluid management while maintaining close respiratory support. Provision of immediate and broad-spectrum antibiotic therapy. Simultaneous assessment for possible sources in order to direct targeted therapy. Consideration for invasive and chemical support to prevent cardiopulmonary collapse. Departure Diagnosis: Primary Impression: Septic shock Additional Impression: Metabolic encephalopathy Condition: Serious Comments I discussed the findings with the patient. I discussed the patient with the on- call hospitalist Dr Jarvisin1:50 AM who was made aware of the lab, the treatment , the patient condition, pending labs. The patient is admitted to telemetry Disclaimer: Inadvertent spelling and grammatical errors are likely due to EHR/ dictation software use and do not reflect on the overall quality of patient care. Also, please note that the electronic time recorded on this note does not necessarily reflect the actual time of the patient encounter. DANGELO HARTLEY MD Jun 10, 2017 23:59
--- NOTE | 2017-06-11 00:36 | RADRPT ---
PROCEDURE: CHEST - 1 VIEW CLINICAL INDICATION: 76-year-old female with shortness of breath and sepsis. TECHNIQUE: A single frontal AP upright portable view of the chest was performed. The images were reviewed on a PACS workstation. COMPARISON: CR CHEST 09/23/2016 FINDINGS: There is a right-sided dual chamber pacemaker. The cardiomediastinal silhouette is mildly enlarged. There is a calcified mitral annulus present. The thoracic aortic arch is calcified. Chronic lung katia nges are present. There is a shallow inspiration. There is mild bibasilar subsegmental atelectasis. There is no evidence for an infiltrate. There is no evidence for congestive heart failure. There i s no evidence for pneumothorax. The osseous structures are intact. IMPRESSION: 1. Right-sided dual chamber pacemaker. 2. Cardiomegaly with calcified mitral annulus. 3. Calcified thoracic aortic arch. 4. Chronic lung changes. 5. Shallow inspiration. 6. Mild bibasilar subsegmental atelectasis. .Flavio Lino MD, MD Date Time Electronically viewed and signed by .Flavio Lino MD, on 06/11/2017 00:36 .M/
[2017-06-11 00:46] LABS: URINE BLOOD (Dip) POC Trace-lysed (NEGATIVE)
[2017-06-11 00:57] LABS: BASOPHIL # 0.1 10^3/ul (0.0-0.1); BASOPHILS % 0.6 % (0.0-2.0); EOSINOPHILS # 0.1 10^3/ul (0.0-0.5); EOSINOPHILS % 1.5 % (0.0-7.0); HEMATOCRIT 35.7 % (37.0-47.0); HEMOGLOBIN 12.4 g/dl (12.0-16.0); LYMPHOCYTES # 2.1 10^3/ul (0.8-2.9); LYMPHOCYTES % 27.2 % (15.0-51.0); MEAN CORPUSCULAR HEMOGLOBIN 32.1 pg (29.0-33.0); MEAN CORPUSCULAR HGB CONC 34.7 g/dl (32.0-37.0); MEAN CORPUSCULAR VOLUME 92.5 fl (82.0-101.0); MEAN PLATELET VOLUME 12.1 fl (7.4-10.4); MONOCYTE # 0.7 10^3/ul (0.3-0.9); MONOCYTES % 8.8 % (0.0-11.0); NEUTROPHIL # 4.7 10^3/ul (1.6-7.5); NEUTROPHILS % 60.9 % (39.0-77.0); PLATELET COUNT 265 10^3/UL (140-415); RED BLOOD COUNT 3.86 10^6/ul (4.20-5.40); RED CELL DISTRIBUTION WIDTH 12.8 % (11.5-14.5); WHITE BLOOD COUNT 7.8 10^3/ul (4.8-10.8)
[2017-06-11 01:11] LABS: INR 0.86; PROTIME 11.7 Sec (12.2-14.2); PT RATIO 0.9
[2017-06-11 01:12] LABS: PARTIAL THROMBOPLASTIN TIME 24.1 Sec (25.0-35.0)
[2017-06-11 01:16] LABS: ALANINE AMINOTRANSFERASE 34 IU/L (13-69); ALBUMIN/GLOBULIN RATIO 1.21; ALKALINE PHOSPHATASE 83 IU/L (42-121); ANION GAP 18 (8-16); ASPARTATE AMINO TRANSFERASE 27 IU/L (15-46); BILIRUBIN,INDIRECT 0.1 mg/dl (0-1.1); BILIRUBIN,TOTAL 0.1 mg/dl (0.2-1.3); BLOOD UREA NITROGEN 27 mg/dl (7-20); CARBON DIOXIDE 23 mmol/L (21-31); CHLORIDE 96 mmol/L (97-110); CREATININE 1.12 mg/dl (0.44-1.00); GLUCOSE 131 mg/dl (70-220); POTASSIUM 4.4 mmol/L (3.5-5.1); SODIUM 133 mmol/L (135-144); TOTAL PROTEIN 7.3 g/dl (6.1-8.1)
[2017-06-11 01:28] LABS: TROPONIN-I 0.025 ng/ml (0.00-0.12)
[2017-06-11] MEDS ORDERED: PIPER-TAZO 3.375 GM IV (PMX) 50 ML IV ONE (01:30)
[2017-06-11] MEDS ORDERED: VANCOMYCIN 1 GM (PMX) 250 ML IVPB SCH (01:30)
[2017-06-11] MEDS ORDERED: SOD CHLORIDE 0.9% 2,170 ML IV ONE (01:30)
--- NOTE | 2017-06-11 01:32 | RADRPT ---
PROCEDURE: CT Brain without contrast. CLINICAL INDICATION: Altered level of consciousness. TECHNIQUE: A CT of the brain was performed on a multislice detector CT scanner utilizing axial sec tions from the skull base through the vertex without contrast. Images were reviewed on a high-[employer] PACS workstation. Exam CTDlvol = 45 mGy and DLP = 720 mGy-cm. One of the following 3 dose red uction techniques were used: Automated exposure control; adjustment of the mA and/or kV according to patient size; or use of iterative reconstruction technique. DICOM images are available. COMPARISON: 04/07/2017 FINDINGS: There is age appropriate central and peripheral atrophy. There is no midline shift. There is a mod erate degree of supratentorial periventricular and subcortical white matter hypodensities. There is no definite acute stroke. There is no mass lesion. There is no intracranial hemorrhage or abnorma l extra-axial fluid collection. Visualized paranasal sinuses are clear. IMPRESSION: 1. No acute intracranial abnormality. 2. Nonspecific white matter changes most commonly seen with microvascular ischemic disease. RPTAT: HMVK .Dangelo Galicia MD, MD Date Time Electronically viewed and signed by .Dangelo Galicia MD, MD on 06/11/2017 01:32 .K/
[2017-06-11 01:39] LABS: ADD UMIC YES; UR ASCORBIC ACID NEGATIVE (NEGATIVE); UR BACTERIA MANY /HPF (NONE SEEN); UR BILIRUBIN (Dip) NEGATIVE (NEGATIVE); UR BLOOD (Dip) NEGATIVE (NEGATIVE); UR CLARITY CLOUDY (CLEAR); UR COLOR YELLOW (YELLOW); UR GLUCOSE (Dip) NEGATIVE (NEGATIVE); UR KETONES (Dip) NEGATIVE (NEGATIVE); UR LEUKOCYTE ESTERASE (Dip) 3+ Leu/ul (NEGATIVE); UR NITRITE (Dip) NEGATIVE (NEGATIVE); UR RBC 4 /HPF (0-5); UR SPECIFIC GRAVITY (Dip) 1.004 (1.003-1.030); UR TOTAL PROTEIN (Dip) NEGATIVE (NEGATIVE); UR UROBILINOGEN (Dip) NEGATIVE (NEGATIVE)
[2017-06-11 01:58] LABS: ETHANOL < 10.0 mg/dl
[2017-06-11] MEDS ORDERED: SOD CHLORIDE 0.9% 1,000 ML IV SCH (02:03)
[2017-06-11] MEDS ORDERED: ACETAMINOPHEN 325 MG TAB PO PRN (02:30)
[2017-06-11] MEDS ORDERED: ONDANSETRON 4 MG INJ IV PRN (02:30)
[2017-06-11] MEDS ORDERED: BISACODYL (EC) 5 MG TAB PO PRN (02:30)
[2017-06-11] MEDS ORDERED: DOCUSATE SODIUM 100 MG CAP PO PRN (02:30)
[2017-06-11] MEDS ORDERED: NACL 0.9% 3 ML SYG IV SCH (02:30)
[2017-06-11 02:53] LABS: BARBITURATES Negative (NEGATIVE); BENZODIAZEPINES Negative (NEGATIVE); CANNABINOIDS Negative (NEGATIVE); COCAINE Negative (NEGATIVE); OPIATES Negative (NEGATIVE)
[2017-06-11] MEDS: CEFTRIAXONE 1 GM/50 ML (PMX) 50 ML IVPB SCH (05:09)
[2017-06-11 05:52] LABS: BASOPHILS % 0.6 % (0.0-2.0); EOSINOPHILS % 0.6 % (0.0-7.0); HEMATOCRIT 33.2 % (37.0-47.0); HEMOGLOBIN 11.2 g/dl (12.0-16.0); LYMPHOCYTES # 1.1 10^3/ul (0.8-2.9); LYMPHOCYTES % 15.8 % (15.0-51.0); MEAN CORPUSCULAR HGB CONC 33.7 g/dl (32.0-37.0); MONOCYTE # 0.5 10^3/ul (0.3-0.9); MONOCYTES % 7.2 % (0.0-11.0); NEUTROPHIL # 5.4 10^3/ul (1.6-7.5); PLATELET COUNT 259 10^3/UL (140-415); RED BLOOD COUNT 3.61 10^6/ul (4.20-5.40); RED CELL DISTRIBUTION WIDTH 12.6 % (11.5-14.5); WHITE BLOOD COUNT 7.2 10^3/ul (4.8-10.8)
[2017-06-11 06:26] LABS: ALBUMIN 3.2 g/dl (3.3-4.9); ALBUMIN/GLOBULIN RATIO 1.03; BILIRUBIN,INDIRECT 0.1 mg/dl (0-1.1); BILIRUBIN,TOTAL 0.1 mg/dl (0.2-1.3); CREATININE 1.03 mg/dl (0.44-1.00); MAGNESIUM 1.4 mg/dl (1.7-2.5); TOTAL PROTEIN 6.3 g/dl (6.1-8.1)
--- NOTE | 2017-06-11 06:36 | HP ---
Date/Time of Note Date/Time of Note DATE: 06/11/17 TIME: 06:28 Assessment/Plan VTE Prophylaxis VTE Prophylaxis Intervention: SCD's Lines/Catheters Urinary Cath still in place: Yes Assessment/Plan Chief Complaint/Hosp Course This is a 76 year old female being admitted to the telemetry floor for: #1 septic shock: Patient had initial lactate of 6.1 and positive urinary tract infection. Patient was given Vanco and Zosyn in the ED. At the current time will trend lactate. Will put patient on ceftriaxone IV. Will check a urine culture. Will provide IV fluid hydration normal saline. #2 altered level of consciousness: CT scan of the head was negative. Patient apparently is more awake and alert on my examination as opposed to when she was initially brought to the ER. She does have a baseline history of dementia and underlying psychiatric disorder as well. Will continue to monitor this and try to contact the assisted living facility in the a.m. in regards to her baseline mental status. #3 Urinary tract infection: Initially patient was given Vanco and Zosyn. At the current time will de-escalate to ceftriaxone IV. Will await urine culture results. #4 Acute versus chronic kidney injury: Patient did have previous elevations in her creatinine of 1.3 and today is 1.12. This likely appears to be prerenal etiology. Likely secondary some mild dehydration. Will provide IV fluid hydration with normal saline. Will avoid nephrotoxic agents. Will repeat a function in the a.m. #5 Dementia: Again I am unsure of the patient's baseline. She is however improving in terms of her alertness and activity level as per the ED physician and nurses. Will continue to monitor. #6 psych disorder: I am unsure of the patient's exact psychiatric diagnosis aside from dementia. At the current time we will continue patient's medications once she passes swallow eval. #7 hypothyroidism: Continue patient's levothyroxine once swallow eval was ordered. Will check a TSH level. #8 hypertension: We will hold patient's amlodipine at this time secondary to his septic shock and risk of possible hypotension. #9 DVT GI prolapses: SCDs, no GI prophylaxis indicated Further treatment strategy will be implemented as per the clinical course Problems: HPI/ROS Admit Date/Time Admit Date/Time Hx of Present Illness Chief complaint: Her level of consciousness The patient is 76-year-old female, presenting to the ER from assisted living because of altered level of consciousness of unknown duration. She is unable to provide the history, the history is obtained from the ED physician documentation, RN, and medical record Upon my examination. Patient still unable to provide any history, however she was more awake as per the nurse. She is able to follow commands such as lift up her arms and legs for the neurological exam. Apparently she is able to walk and perform some of her daily activities herself at the assisted living as per the ED physician and nurses. allergies: nkda meds: See mar ROS Subjective hx not possible: pt non-verbal, other (Altered, dementia) PMH/Family/Social Past Medical History Dyslipidemia, psychiatric illness, diabetes mellitus, hypothyroidism, dementia, history of CVA, hypertension, CAD, anemia Past Surgical History pacemaker placement Family History Significant Family History: other (unable to assess secondary to clinical condition) Social History unable to assess secondary to clinical condition Smoking Status: Unknown if ever smoked Exam/Review of Systems Vital Signs Vitals Vital Signs Date Time Temp Pulse Resp B/P Pulse Ox O2 Delivery O2 Flow Rate FiO2 06/11/17 06:00 74 12 139/74 99 Room Air 06/11/17 00:20 96.8 Intake and Output 06/10/17 06/10/17 06/11/17 14:59 22:59 06:59 Intake Total 2520 ml Output Total 1700 ml Balance 820 ml Exam Exam General: She is awake in bed, she is unable to answer questions coherently, I am unsure of her actual baseline we will need to confirm this in the a.m. with assisted-living facility. HEENT: Atraumatic, normocephalic. The pupils are equal, round and reactive. Neck: Supple with full range of motion. No rigidity or meningismus Lungs: Clear to auscultation bilaterally no crackles rales or wheezing Heart: Normal S1-S2, Regular rhythm and rate. No murmur, S3, or S4 Abdomen: Soft , nontender, nondistended , bowel sounds are present. No guarding no rebound tenderness , No masses or organomegaly. No costovertebral temporal angle mass Extremities: Normal to inspection, no edema no cyanosis Neurologic: Unable to assess secondary to patient's clinical condition, patient does has a history of dementia however I am unsure of her baseline, but she is able to move all 4 extremities by command Additional Comments EKG: Rate/Rhythm: Pacer at 95 beats/min above as per ed physician documentation PROCEDURE: CHEST - 1 VIEW CLINICAL INDICATION: 76-year-old female with shortness of breath and sepsis. TECHNIQUE: A single frontal AP upright portable view of the chest was performed. The images were reviewed on a PACS workstation. COMPARISON: CR CHEST 09/23/2016 FINDINGS: There is a right-sided dual chamber pacemaker. The cardiomediastinal silhouette is mildly enlarged. There is a calcified mitral annulus present. The thoracic aortic arch is calcified. Chronic lung changes are present. There is a shallow inspiration. There is mild bibasilar subsegmental atelectasis. There is no evidence for an infiltrate. There is no evidence for congestive heart failure. There is no evidence for pneumothorax. The osseous structures are intact. IMPRESSION: 1. Right-sided dual chamber pacemaker. 2. Cardiomegaly with calcified mitral annulus. 3. Calcified thoracic aortic arch. 4. Chronic lung changes. 5. Shallow inspiration. 6. Mild bibasilar subsegmental atelectasis. .Flavio Lino MD, MD Date Time Electronically viewed and signed by .Flavio Lino MD, MD on 06/11/2017 00:36 .M/ CC: DANGELO HARTLEY MD PROCEDURE: CT Brain without contrast. CLINICAL INDICATION: Altered level of consciousness. TECHNIQUE: A CT of the brain was performed on a multislice detector CT scanner utilizing axial sections from the skull base through the vertex without contrast. Images were reviewed on a high-resolution PACS workstation. Exam CTDlvol = 45 mGy and DLP = 720 mGy-cm. One of the following 3 dose reduction techniques were used: Automated exposure control; adjustment of the mA and/or kV according to patient size; or use of iterative reconstruction technique. DICOM images are available. COMPARISON: 04/07/2017 FINDINGS: There is age appropriate central and peripheral atrophy. There is no midline shift. There is a moderate degree of supratentorial periventricular and subcortical white matter hypodensities. There is no definite acute stroke. There is no mass lesion. There is no intracranial hemorrhage or abnormal extra- axial fluid collection. Visualized paranasal sinuses are clear. IMPRESSION: 1. No acute intracranial abnormality. 2. Nonspecific white matter changes most commonly seen with microvascular ischemic disease. RPTAT: HMVK .Dangelo Galicia MD, MD Date Time Electronically viewed and signed by .Dangelo Galicia MD, MD on 06/11/2017 01:32 .K/ CC: DANGELO HARTLEY MD Labs Result Diagram: 06/11/17 0525 06/11/17 0025 Medications Medications Current Medications Sodium Chloride (NS) 1,000 ml @ 70 mls/hr [id number] IV ; Start 06/11/17 at 02:03 Ondansetron HCl (Zofran Inj) 4 mg Q6H PRN IV NAUSEA AND/OR VOMITING; Start at 02:30 Acetaminophen (Tylenol Tab) 650 mg Q6H PRN PO PAIN LEVEL 1-3 OR FEVER; Start 06/11/17 at 02:30 Docusate Sodium (Colace) 100 mg Q12H PRN PO CONSTIPATION; Start 06/11/17 at 02 :30 Bisacodyl (Dulcolax) 5 mg DAILY PRN PO CONSTIPATION; Start 06/11/17 at 02:30 Aspirin (Halfprin) 81 mg DAILY PO ; Start 06/11/17 at 09:00 Multivitamins Therapeutic (Theragran) 1 tab DAILY PO ; Start 06/11/17 at 09:00 Olanzapine (Zyprexa) 5 mg DAILY PO ; Start 06/11/17 at 09:00 Risperidone 1 mg 1 mg DAILY PO ; Start 06/11/17 at 09:00 Ceftriaxone Sodium (Rocephin) 50 ml @ 100 mls/hr Q24H IVPB Last administered on 06/11/17t 05:09; Admin Dose 100 MLS/HR; Start 06/11/17 at 04:30 IAN GARNICA Jun 11, 2017 06:36
[2017-06-11] MEDS ORDERED: LEVO100T87 PO (06:58)
[2017-06-11] MEDS ORDERED: OLAN10TA7 PO (06:59)
[2017-06-11] MEDS ORDERED: METF1000 PO (07:00)
[2017-06-11] MEDS ORDERED: LEVOTHYROXINE 75 MCG TAB PO SCH (07:00)
[2017-06-11 07:08] LABS: THYROID STIMULATING HORMONE 0.432 MIU/L (0.465-4.680)
[2017-06-11 07:31] VITALS: TEMP 98.1
[2017-06-11] MEDS: OLANZAPINE 5 MG TAB PO SCH (09:00)
[2017-06-11] MEDS: ASPIRIN (EC) 81 MG TAB PO SCH (09:00)
[2017-06-11] MEDS ORDERED: OLANZAPINE 5 MG TAB PO SCH (09:00)
[2017-06-11 10:45] VITALS: BP 134/64; PULSE 71; RESP 14
[2017-06-11] MEDS: MULTIVITAMINS THERAPEUTIC TAB PO SCH (11:22)
[2017-06-11] MEDS: RISPERIDONE 1 MG TAB PO SCH (11:22)
--- NOTE | 2017-06-11 12:57 | PN ---
Date/Time of Note Date/Time of Note DATE: 06/11/17 TIME: 12:51 Assessment/Plan VTE Prophylaxis VTE Prophylaxis Intervention: SCD's Lines/Catheters Urinary Cath still in place: Yes Reason Cath still needed: other (indicate) (dc) Assessment/Plan Assessment/Plan 76 yo F with hx dementia transferred from facility for decreased level of alertness, found to have bactiuria. D/dx includes cystitis v other as pt appears to be back to baseline mentation already. Pt did not meet sepsis criteria at admission PLAN cont empiric rocephin pending further culture data cont home meds unclear what to make of TFTs, defer to PCP Subjective 24 Hr Interval Summary Free Text/Dictation called pt's facility. pt is not oriented to time at baseline, is able to feed herself and make her needs known. gets around in a wheelchair this morning pt didn't know the year but was able to state that she wanted something to drink Exam/Review of Systems Vital Signs Vitals Vital Signs Date Time Temp Pulse Resp B/P Pulse Ox O2 Delivery O2 Flow Rate FiO2 06/11/17 10:45 71 14 134/64 97 Room Air 06/11/17 07:31 98.1 Intake and Output 06/10/17 06/10/17 06/11/17 15:00 23:00 07:00 Intake Total 2520 ml Output Total 1700 ml Balance 820 ml Exam nad no mrg lungs clear abd soft no rashes no edema urine with GNRs Results Result Diagram: 06/11/17 0525 06/11/17 0528 Results 24 hrs Laboratory Tests Test 06/11/17 00:25 06/11/17 00:44 06/11/17 01:10 06/11/17 02:56 White Blood Count 7.8 # Red Blood Count 3.86 L Hemoglobin 12.4 Hematocrit 35.7 L Mean Corpuscular Volume 92.5 Mean Corpuscular Hemoglobin 32.1 Mean Corpuscular Hemoglobin Concent 34.7 Red Cell Distribution Width 12.8 Platelet Count 265 Mean Platelet Volume 12.1 H Neutrophils % 60.9 Lymphocytes % 27.2 Monocytes % 8.8 Eosinophils % 1.5 Basophils % 0.6 Nucleated Red Blood Cells % 0.0 Neutrophils # 4.7 Lymphocytes # 2.1 Monocytes # 0.7 Eosinophils # 0.1 Basophils # 0.1 Nucleated Red Blood Cells # 0.0 Prothrombin Time 11.7 L Prothrombin Time Ratio 0.9 INR International Normalized Ratio 0.86 Activated Partial Thromboplast Time 24.1 L Urine Color YELLOW Urine Clarity CLOUDY A Urine pH 6.0 Urine Specific [place] 1.004 Urine Ketones NEGATIVE Urine Nitrite NEGATIVE Urine Bilirubin NEGATIVE Urine Urobilinogen NEGATIVE Urine Leukocyte Esterase 3+ H Urine Microscopic RBC 4 Urine Microscopic WBC 180 H Urine Bacteria MANY A Urine Hemoglobin NEGATIVE Urine Glucose NEGATIVE Urine Total Protein NEGATIVE Sodium Level 133 L Potassium Level 4.4 Chloride Level 96 L Carbon Dioxide Level 23 Anion Gap 18 H Blood Urea Nitrogen 27 H Creatinine 1.12 H Glucose Level 131 Lactic Acid Level 4.9 *H 1.2 Calcium Level 10.0 Total Bilirubin 0.1 L Direct Bilirubin 0.00 Indirect Bilirubin 0.1 Aspartate Amino Transf (AST/SGOT) 27 Alanine Aminotransferase (ALT/SGPT) 34 Alkaline Phosphatase 83 Troponin I 0.025 Total Protein 7.3 Albumin 4.0 Globulin 3.30 H Albumin/Globulin Ratio 1.21 Urine Opiates Screen Negative Urine Barbiturates Negative Urine Amphetamines Screen Negative Urine Benzodiazepines Screen Negative Urine Cocaine Screen Negative Urine Cannabinoids Negative Ethyl Alcohol Level < 10.0 Bedside Urine pH (LAB) 5.5 Bedside Urine Protein (LAB) Trace H Bedside Urine Glucose (UA) Negative Bedside Urine Ketones (LAB) Negative Bedside Urine Blood Trace-lysed H Bedside Urine Nitrite (LAB) Negative Bedside Urine Leukocyte Esterase (L 1+ H Thyroid Stimulating Hormone (TSH) 5.850 H Test 06/11/17 05:25 06/11/17 05:28 06/11/17 05:30 06/11/17 05:32 White Blood Count 7.2 Red Blood Count 3.61 L Hemoglobin 11.2 L Hematocrit 33.2 L Mean Corpuscular Volume 92.0 Mean Corpuscular Hemoglobin 31.0 Mean Corpuscular Hemoglobin Concent 33.7 Red Cell Distribution Width 12.6 Platelet Count 259 Mean Platelet Volume 12.0 H Neutrophils % 75.0 Lymphocytes % 15.8 Monocytes % 7.2 Eosinophils % 0.6 Basophils % 0.6 Nucleated Red Blood Cells % 0.0 Neutrophils # 5.4 Lymphocytes # 1.1 Monocytes # 0.5 Eosinophils # 0.0 Basophils # 0.0 Nucleated Red Blood Cells # 0.0 Sodium Level 142 Potassium Level 4.0 Chloride Level 109 # Carbon Dioxide Level 25 Anion Gap 12 Blood Urea Nitrogen 24 H Creatinine 1.03 H Glucose Level 105 Lactic Acid Level 1.0 Calcium Level 9.0 Magnesium Level 1.4 L Total Bilirubin 0.1 L Direct Bilirubin 0.00 Indirect Bilirubin 0.1 Aspartate Amino Transf (AST/SGOT) 23 Alanine Aminotransferase (ALT/SGPT) 30 Alkaline Phosphatase 71 Total Protein 6.3 # Albumin 3.2 L Globulin 3.10 Albumin/Globulin Ratio 1.03 Triglycerides Level 71 Cholesterol Level 114 LDL Cholesterol, Calculated 45 HDL Cholesterol 55 Cholesterol/HDL Ratio 2.0 Thyroid Stimulating Hormone (TSH) 0.432 L Free Thyroxine 1.60 Free Triiodothyronine (T3) pg/mL 2.76 L Hemoglobin A1c 6.1 H Medications Medications Current Medications Sodium Chloride (NS) 1,000 ml @ 70 mls/hr [id number] IV Last administered on 02:03; Admin Dose 70 MLS/HR; Start 06/11/17 at 02:03 Ondansetron HCl (Zofran Inj) 4 mg Q6H PRN IV NAUSEA AND/OR VOMITING; Start at 02:30 Acetaminophen (Tylenol Tab) 650 mg Q6H PRN PO PAIN LEVEL 1-3 OR FEVER; Start 06/11/17 at 02:30 Docusate Sodium (Colace) 100 mg Q12H PRN PO CONSTIPATION; Start 06/11/17 at 02 :30 Bisacodyl (Dulcolax) 5 mg DAILY PRN PO CONSTIPATION; Start 06/11/17 at 02:30 Aspirin (Halfprin) 81 mg DAILY PO Last administered on 06/11/17 09:00; Admin Dose 81 MG; Start 06/11/17 at 09:00 Multivitamins Therapeutic (Theragran) 1 tab DAILY PO Last administered on 06/11 11:22; Admin Dose 1 TAB; Start 06/11/17 at 09:00 Risperidone 1 mg 1 mg DAILY PO Last administered on 06/11/17 11:22; Admin Dose 1 MG; Start 06/11/17 at 09:00 Ceftriaxone Sodium (Rocephin) 50 ml @ 100 mls/hr Q24H IVPB Last administered on 06/11/17 05:09; Admin Dose 100 MLS/HR; Start 06/11/17 at 04:30 Olanzapine (Zyprexa) 10 mg DAILY PO Last administered on 06/11/17t 09:00; Admin Dose 10 MG; Start 06/11/17 at 09:00 USMAN JAMIL MD Jun 11, 2017 12:56
[2017-06-11 14:54] VITALS: BP 156/80; PULSE 83; RESP 16
[2017-06-11 19:55] VITALS: BP 158/74; RESP 20
[2017-06-12 02:02] VITALS: BP 156/74; RESP 18
[2017-06-12] MEDS: CEFTRIAXONE 1 GM/50 ML (PMX) 50 ML IVPB SCH (04:06)
[2017-06-12] MEDS ORDERED: LEVOTHYROXINE 100 MCG TAB ONE (05:16)
[2017-06-12 06:04] LABS: BASOPHIL # 0.1 10^3/ul (0.0-0.1); BASOPHILS % 0.7 % (0.0-2.0); EOSINOPHILS # 0.1 10^3/ul (0.0-0.5); EOSINOPHILS % 1.1 % (0.0-7.0); HEMATOCRIT 33.3 % (37.0-47.0); HEMOGLOBIN 11.3 g/dl (12.0-16.0); LYMPHOCYTES # 1.4 10^3/ul (0.8-2.9); MEAN CORPUSCULAR HEMOGLOBIN 31.7 pg (29.0-33.0); MEAN CORPUSCULAR HGB CONC 33.9 g/dl (32.0-37.0); MEAN CORPUSCULAR VOLUME 93.3 fl (82.0-101.0); MEAN PLATELET VOLUME 11.7 fl (7.4-10.4); MONOCYTE # 0.9 10^3/ul (0.3-0.9); MONOCYTES % 11.5 % (0.0-11.0); NEUTROPHIL # 5.1 10^3/ul (1.6-7.5); NEUTROPHILS % 67.9 % (39.0-77.0); PLATELET COUNT 280 10^3/UL (140-415); RED BLOOD COUNT 3.57 10^6/ul (4.20-5.40); RED CELL DISTRIBUTION WIDTH 13.2 % (11.5-14.5); WHITE BLOOD COUNT 7.5 10^3/ul (4.8-10.8)
[2017-06-12] MEDS: LEVOTHYROXINE 100 MCG TAB PO SCH (06:30)
[2017-06-12 06:36] LABS: CALCIUM 9.5 mg/dl (8.4-10.2); CREATININE 1.22 mg/dl (0.44-1.00); POTASSIUM 4.7 mmol/L (3.5-5.1)
[2017-06-12 08:00] VITALS: BP 130/62; RESP 17
[2017-06-12] MEDS: MULTIVITAMINS THERAPEUTIC TAB PO SCH (09:07)
[2017-06-12] MEDS: RISPERIDONE 1 MG TAB PO SCH (09:07)
[2017-06-12] MEDS: ASPIRIN (EC) 81 MG TAB PO SCH (09:07)
[2017-06-12] MEDS: OLANZAPINE 5 MG TAB PO SCH (09:08)
--- NOTE | 2017-06-12 13:11 | PN ---
Date/Time of Note Date/Time of Note DATE: 06/12/17 TIME: 13:09 Assessment/Plan VTE Prophylaxis VTE Prophylaxis Intervention: SCD's Lines/Catheters IV Catheter Type (from [facility]): Saline Lock Urinary Cath still in place: No Assessment/Plan Assessment/Plan 76 yo F with hx dementia transferred from facility for decreased level of alertness, now with evidence of polymicrobial bacteremia. Etiology unclear as urine with just GNRs. PLAN cont empiric rocephin pending further culture data given pt clinical improvement. may need TTE. Surveillance blood cultures ordered cont home meds unclear what to make of TFTs, defer to PCP Subjective 24 Hr Interval Summary Free Text/Dictation sitting up in bed, no complaints Exam/Review of Systems Vital Signs Vitals Vital Signs Date Time Temp Pulse Resp B/P Pulse Ox O2 Delivery O2 Flow Rate FiO2 06/12/17 08:00 97.5 69 17 130/62 97 06/11/17 10:45 Room Air Intake and Output 06/11/17 06/11/17 06/12/17 15:00 23:00 07:00 Intake Total 50 ml Output Total 1600 ml Balance -1600 ml 50 ml Exam nad, calm no mrg lungs clear abd soft no rashes Results Result Diagram: 06/12/17 0542 06/12/17 0542 Results 24 hrs Laboratory Tests Test 06/12/17 05:42 White Blood Count 7.5 Red Blood Count 3.57 L Hemoglobin 11.3 L Hematocrit 33.3 L Mean Corpuscular Volume 93.3 Mean Corpuscular Hemoglobin 31.7 Mean Corpuscular Hemoglobin Concent 33.9 Red Cell Distribution Width 13.2 Platelet Count 280 Mean Platelet Volume 11.7 H Neutrophils % 67.9 Lymphocytes % 18.0 Monocytes % 11.5 H Eosinophils % 1.1 Basophils % 0.7 Nucleated Red Blood Cells % 0.0 Neutrophils # 5.1 Lymphocytes # 1.4 Monocytes # 0.9 Eosinophils # 0.1 Basophils # 0.1 Nucleated Red Blood Cells # 0.0 Sodium Level 144 Potassium Level 4.7 Chloride Level 108 Carbon Dioxide Level 27 Anion Gap 14 Blood Urea Nitrogen 26 H Creatinine 1.22 H Glucose Level 111 Calcium Level 9.5 Medications Medications Current Medications Ondansetron HCl (Zofran Inj) 4 mg Q6H PRN IV NAUSEA AND/OR VOMITING; Start at 02:30 Acetaminophen (Tylenol Tab) 650 mg Q6H PRN PO PAIN LEVEL 1-3 OR FEVER; Start 06/11/17 at 02:30 Docusate Sodium (Colace) 100 mg Q12H PRN PO CONSTIPATION; Start 06/11/17 at 02 :30 Bisacodyl (Dulcolax) 5 mg DAILY PRN PO CONSTIPATION; Start 06/11/17 at 02:30 Aspirin (Halfprin) 81 mg DAILY PO Last administered on 06/12/17 09:07; Admin Dose 81 MG; Start 06/11/17 at 09:00 Multivitamins Therapeutic (Theragran) 1 tab DAILY PO Last administered on 09:07; Admin Dose 1 TAB; Start 06/11/17 at 09:00 Risperidone 1 mg 1 mg DAILY PO Last administered on 06/12/17 09:07; Admin Dose 1 MG; Start 06/11/17 at 09:00 Ceftriaxone Sodium (Rocephin) 50 ml @ 100 mls/hr Q24H IVPB Last administered on 06/12/17 04:06; Admin Dose 100 MLS/HR; Start 06/11/17 at 04:30 Olanzapine (Zyprexa) 10 mg DAILY PO Last administered on 06/12/17 09:08; Admin Dose 10 MG; Start 06/11/17 at 09:00 USMAN JAMIL MD Jun 12, 2017 13:11
[2017-06-12 14:00] VITALS: BP 125/70; RESP 18
[2017-06-12 20:15] VITALS: BP 138/80; RESP 19
[2017-06-13 02:00] VITALS: BP 149/79; RESP 17
[2017-06-13] MEDS: CEFTRIAXONE 1 GM/50 ML (PMX) 50 ML IVPB SCH (04:41)
[2017-06-13] MEDS: LEVOTHYROXINE 100 MCG TAB PO SCH (05:23)
[2017-06-13 05:53] LABS: CALCIUM 9.5 mg/dl (8.4-10.2); CREATININE 1.5 mg/dl (0.44-1.00); POTASSIUM 4.7 mmol/L (3.5-5.1)
[2017-06-13 08:00] VITALS: BP 139/75; RESP 18
[2017-06-13] MEDS: RISPERIDONE 1 MG TAB PO SCH (08:17)
[2017-06-13] MEDS: MULTIVITAMINS THERAPEUTIC TAB PO SCH (08:17)
[2017-06-13] MEDS: ASPIRIN (EC) 81 MG TAB PO SCH (08:17)
[2017-06-13] MEDS: OLANZAPINE 5 MG TAB PO SCH (08:17)
--- NOTE | 2017-06-13 12:43 | PN ---
Date/Time of Note Date/Time of Note DATE: 06/13/17 TIME: 12:42 Assessment/Plan VTE Prophylaxis VTE Prophylaxis Intervention: SCD's Lines/Catheters IV C[facility]ter Type (from [facility]): Saline Lock Urinary Cath still in place: No Assessment/Plan Assessment/Plan 76 yo F with hx dementia transferred from facility for decreased level of alertness, now with evidence of polymicrobial bacteremia. Etiology unclear as urine with just klebsiella. PLAN cont empiric rocephin pending further culture data given pt clinical improvement. may need TTE. Surveillance blood cultures ordered and are negative thus far cont home meds THELMA: IVFs unclear what to make of TFTs, defer to PCP Subjective 24 Hr Interval Summary Free Text/Dictation stable, no complaints Exam/Review of Systems Vital Signs Vitals Vital Signs Date Time Temp Pulse Resp B/P Pulse Ox O2 Delivery O2 Flow Rate FiO2 06/13/17 08:00 97.3 77 18 139/75 95 06/11/17 10:45 Room Air Intake and Output 06/12/17 06/12/17 06/13/17 14:59 22:59 06:59 Intake Total 960 ml 290 ml Balance 960 ml 290 ml Exam nad no mrg lungs clear abd soft no rashes Results Result Diagram: 06/12/17 0542 06/13/17 0411 Results 24 hrs Laboratory Tests Test 06/13/17 04:11 Sodium Level 141 Potassium Level 4.7 Chloride Level 105 Carbon Dioxide Level 27 Anion Gap 14 Blood Urea Nitrogen 34 H Creatinine 1.50 H Glucose Level 114 Calcium Level 9.5 Medications Medications Current Medications Ondansetron HCl (Zofran Inj) 4 mg Q6H PRN IV NAUSEA AND/OR VOMITING; Start at 02:30 Acetaminophen (Tylenol Tab) 650 mg Q6H PRN PO PAIN LEVEL 1-3 OR FEVER; Start 06/11/17 at 02:30 Docusate Sodium (Colace) 100 mg Q12H PRN PO CONSTIPATION; Start 06/11/17 at 02 :30 Bisacodyl (Dulcolax) 5 mg DAILY PRN PO CONSTIPATION; Start 06/11/17 at 02:30 Aspirin (Halfprin) 81 mg DAILY PO Last administered on 06/13/17t 08:17; Admin Dose 81 MG; Start 06/11/17 at 09:00 Multivitamins Therapeutic (Theragran) 1 tab DAILY PO Last administered on 08:17; Admin Dose 1 TAB; Start 06/11/17 at 09:00 Risperidone 1 mg 1 mg DAILY PO Last administered on 06/13/17 08:17; Admin Dose 1 MG; Start 06/11/17 at 09:00 Ceftriaxone Sodium (Rocephin) 50 ml @ 100 mls/hr Q24H IVPB Last administered on 06/13/17 04:41; Admin Dose 100 MLS/HR; Start 06/11/17 at 04:30 Olanzapine (Zyprexa) 10 mg DAILY PO Last administered on 06/13/17 08:17; Admin Dose 10 MG; Start 06/11/17 at 09:00 USMAN JAMIL MD Jun 13, 2017 12:43
[2017-06-13] MEDS: SOD CHLORIDE 0.9% 1,000 ML IV SCH ×2 (13:08→23:27)
[2017-06-13 14:00] VITALS: BP 126/70; RESP 17
[2017-06-13 20:00] VITALS: BP 153/74; RESP 19
[2017-06-14 02:00] VITALS: BP 144/67; RESP 18
[2017-06-14] MEDS: CEFTRIAXONE 1 GM/50 ML (PMX) 50 ML IVPB SCH (05:08)
[2017-06-14 06:45] LABS: CALCIUM 9.1 mg/dl (8.4-10.2); CREATININE 1.38 mg/dl (0.44-1.00); POTASSIUM 4.7 mmol/L (3.5-5.1)
[2017-06-14 07:25] VITALS: BP 149/71; RESP 17
[2017-06-14] MEDS: LEVOTHYROXINE 100 MCG TAB PO SCH (07:43)
[2017-06-14] MEDS: SOD CHLORIDE 0.9% 1,000 ML IV SCH ×2 (10:07→20:00)
[2017-06-14] MEDS: ASPIRIN (EC) 81 MG TAB PO SCH (10:07)
[2017-06-14] MEDS: MULTIVITAMINS THERAPEUTIC TAB PO SCH (10:08)
[2017-06-14] MEDS: RISPERIDONE 1 MG TAB PO SCH (10:08)
[2017-06-14] MEDS: OLANZAPINE 5 MG TAB PO SCH (10:08)
--- NOTE | 2017-06-14 12:53 | PN ---
Date/Time of Note Date/Time of Note DATE: 06/14/17 TIME: 12:50 Assessment/Plan VTE Prophylaxis VTE Prophylaxis Intervention: SCD's Lines/Catheters IV Catheter Type (from [facility]): Saline Lock Urinary Cath still in place: No Assessment/Plan Assessment/Plan 76 yo F with hx dementia transferred from facility for decreased level of alertness, now with evidence of polymicrobial bacteremia (Acinetobacter, CONS, Aerococcus). Etiology unclear as urine with just klebsiella. Of note, she had acinetobacter bacteremia during an admission a few mos ago, appears she was only treated for a UTI at that itme. PLAN cont empiric Rocephin pending further culture data given pt clinical improvement -->awaiting Aerococcus sensitives. Surveillance blood cultures ordered and are negative thus far will consult ID as source of this bacteremia is unclear cont home meds THELMA: IVFs unclear what to make of TFTs, defer to PCP Subjective 24 Hr Interval Summary Free Text/Dictation sitting up in bed, no complaints Exam/Review of Systems Vital Signs Vitals Vital Signs Date Time Temp Pulse Resp B/P Pulse Ox O2 Delivery O2 Flow Rate FiO2 06/14/17 07:25 98.4 77 17 149/71 96 06/11/17 10:45 Room Air Intake and Output 06/13/17 06/13/17 06/14/17 15:00 23:00 07:00 Intake Total 1240 ml 1270 ml Balance 1240 ml 1270 ml Exam nad no mrg lungs clear abd soft no rashes urine culture noted blood with Acinetobacter + CONS +Aerococcus, surveillance culture neg Results Result Diagram: 06/12/17 0542 06/14/17 0446 Results 24 hrs Laboratory Tests Test 06/14/17 04:46 Sodium Level 143 Potassium Level 4.7 Chloride Level 109 Carbon Dioxide Level 23 Anion Gap 16 Blood Urea Nitrogen 37 H Creatinine 1.38 H Glucose Level 113 Calcium Level 9.1 Medications Medications Current Medications Ondansetron HCl (Zofran Inj) 4 mg Q6H PRN IV NAUSEA AND/OR VOMITING; Start at 02:30 Acetaminophen (Tylenol Tab) 650 mg Q6H PRN PO PAIN LEVEL 1-3 OR FEVER; Start 06/11/17 at 02:30 Docusate Sodium (Colace) 100 mg Q12H PRN PO CONSTIPATION; Start 06/11/17 at 02 :30 Bisacodyl (Dulcolax) 5 mg DAILY PRN PO CONSTIPATION; Start 06/11/17 at 02:30 Aspirin (Halfprin) 81 mg DAILY PO Last administered on 06/14/17 10:07; Admin Dose 81 MG; Start 06/11/17 at 09:00 Multivitamins Therapeutic (Theragran) 1 tab DAILY PO Last administered on 10:08; Admin Dose 1 TAB; Start 06/11/17 at 09:00 Risperidone 1 mg 1 mg DAILY PO Last administered on 06/14/17 10:08; Admin Dose 1 MG; Start 06/11/17 at 09:00 Ceftriaxone Sodium (Rocephin) 50 ml @ 100 mls/hr Q24H IVPB Last administered on 06/14/17 05:08; Admin Dose 100 MLS/HR; Start 06/11/17 at 04:30 Olanzapine 10 mg 10 mg DAILY PO Last administered on 06/14/17 10:08; Admin Dose 10 MG; Start 06/11/17 at 09:00 Sodium Chloride (NS) 1,000 ml @ 100 mls/hr Q10H IV Last administered on 10:07; Admin Dose 100 MLS/HR; Start 06/13/17 at 13:00 USMAN JAMIL MD Jun 14, 2017 12:53
[2017-06-14 14:09] VITALS: BP 136/75; RESP 17
--- NOTE | 2017-06-14 19:45 | CONS ---
DATE OF ADMISSION: 06/11/2017 DATE OF CONSULTATION: 06/14/2017 TYPE OF CONSULTATION: Infectious disease. REASON FOR CONSULTATION: Antibiotic management. HISTORY OF PRESENT ILLNESS: Summer Barnes is a 77-year-old female who presented to the emergency room with altered level of consciousness of unknown duration. Her past problems include: 1. Dementia. 2. Altered level of consciousness. A CT scan was done which was negative. She has a baseline hist ory of dementia. 3. Underlying psychiatric disorders. 4. Hypothyroidism. 5. Hypertension. 6. Sepsis. The patient was admitted with a lactic acid of 6.1 and positive urinary tract infection. She was gi alma vancomycin and Zosyn in the emergency room. She was then switched over to ceftriaxone. Other p roblems include history of CVA, coronary artery disease and anemia. PAST SURGICAL HISTORY: She has a history of pacemaker placement. FAMILY HISTORY: Noncontributory. SOCIAL HISTORY: She does not smoke, drink or abuse drugs. HOSPITAL COURSE: The patient had a chest x-ray which showed right-sided dual-chamber pacemaker, car diomegaly, calcified thoracic aortic arch, mild bibasilar subsegmental atelectasis. A CT scan of th e brain showed no acute intracranial abnormality, nonspecific white matter changes most commonly see n with microvascular ischemic disease. The patient grew out Acinetobacter species, Enterococcus and coagulase-negative Staph from 2 sets of blood cultures on the . She also grew K. pneumoniae fr om the urinary tract which was sensitive to virtually everything. Interestingly enough, the Acineto bacter is also sensitive to virtually everything. This is very unusual. She had coagulase-negative Staph which was sensitive to trimethoprim sulfa, doxycycline and, of course, vancomycin and rifampi n; however, the patient currently had blood cultures that are negative. White count is 7.5, H and H 11.3 and 33.3, platelet count of 280,000. She had, according to history, an admission a few months ago where she had Acinetobacter bacteremia as well. PHYSICAL EXAMINATION: GENERAL: The patient is an elderly-appearing female who is awake but confused, in no acute distress . VITAL SIGNS: Stable. She is afebrile. SKIN: Without generalized rash. HEENT: Within normal limits. NECK: Supple. LYMPH NODES: None palpable. CHEST: Decreased breath sounds at the bases. THORAX: She has a pacemaker present. HEART: Without murmur or gallop. ABDOMEN: Soft, nontender, without organosplenomegaly or masses. EXTREMITIES: Without cyanosis, clubbing or edema. RECTAL AND GENITAL: Deferred. NEUROLOGIC: The patient is demented but moves all extremities. No focal neurological abnormality. IMAGING: As noted, the chest x-ray was unremarkable. She has calcified mitral annulus present. Th oracic aortic arch is calcified. IMPRESSION AND PLAN: The patient currently has no evidence of sepsis. She is on ceftriaxone. Bloo d cultures, which were repeated, were negative. We can repeat a urinalysis and culture. I would pr obably get a 2D echocardiogram and consider an indium labeled white cell study to look for any focus of infection such as an abscess. I will dictate my findings to the hospitalist. Dictated By: LAURA LESTER MD, JD/CHARIS Conf#: [id number] DID#: [id number] CC: IAN GARNICA MD;*End*
[2017-06-14 20:02] VITALS: BP 147/71; RESP 18
[2017-06-15 02:03] VITALS: BP 161/74; RESP 18
[2017-06-15] MEDS: CEFTRIAXONE 1 GM/50 ML (PMX) 50 ML IVPB SCH (04:13)
[2017-06-15] MEDS: SOD CHLORIDE 0.9% 1,000 ML IV SCH ×3 (05:00→23:33)
[2017-06-15] MEDS: LEVOTHYROXINE 100 MCG TAB PO SCH (06:32)
[2017-06-15 07:49] VITALS: BP 141/67; RESP 18
[2017-06-15] MEDS: MULTIVITAMINS THERAPEUTIC TAB PO SCH (08:17)
[2017-06-15] MEDS: RISPERIDONE 1 MG TAB PO SCH (08:17)
[2017-06-15] MEDS: ASPIRIN (EC) 81 MG TAB PO SCH (08:17)
[2017-06-15] MEDS: OLANZAPINE 5 MG TAB PO SCH (08:17)
--- NOTE | 2017-06-15 09:22 | PN ---
Date/Time of Note Date/Time of Note DATE: 06/15/17 TIME: 09:15 Assessment/Plan VTE Prophylaxis VTE Prophylaxis Intervention: LMWH Lines/Catheters IV Catheter Type (from [facility]): Peripheral IV Urinary Cath still in place: No Assessment/Plan Assessment/Plan 77-year-old female sent [facility] because of altered mentation found to have sepsis with septic shock secondary to urinary tract infection and bacteremia, now managed as follows. 1. Status post sepsis with septic shock 2. Acinetobacter bacteremia, query source 3. Urinary tract infection 4. Chronic kidney disease 5. Chronic dementia at baseline 6. Chronic hypothyroidism on thyroxine supplementation 7. Chronic hypertension Plan: Appreciate ID review and inputs, spoke with Dr. Davidson, in view of patient's overall clinical status, chronic dementia and quality of life, we can hold off on WBC scan for now and plan to do it if patient develops another episode of Acinetobacter bacteremia. In the interim we will get a 2D echo to rule out vegetations and continue current antibiotics. If echo is negative, patient will likely be discharged back to halfway to complete antibiotic course over there. Recommend strong UTI prevention. In the interim, we will resume low-dose home antihypertensives, consider nephrology consultation for chronic kidney disease, and continue other supportive care. Subjective 24 Hr Interval Summary Free Text/Dictation Patient remains pleasantly confused. Reviewed with nursing at bedside. Patient tolerated breakfast very well. Patient is is nonambulant, but it is transfers with assistance to chair and wheelchair. No family members noted at bedside so far. Patient seems to be in good mood and in no pain., Patient states she has a son José Luis Barnes, but she does not know where he Lives or how to reach him. Exam/Review of Systems Vital Signs Vitals Vital Signs Date Time Temp Pulse Resp B/P Pulse Ox O2 Delivery O2 Flow Rate FiO2 06/15/17 07:49 97.9 66 18 141/67 98 06/11/17 10:45 Room Air Intake and Output 06/14/17 06/14/17 06/15/17 15:00 23:00 07:00 Intake Total 1570 ml 980 ml Balance 1570 ml 980 ml Exam Constitutional: alert, oriented ( to name only) Psych: other (Pleasantly confused) Head: atraumatic, normocephalic Eyes: PERRL ENMT: mucosa pink and moist Respiratory: diminished breath sounds, No crackles/rales, No labored breathing Cardiovascular: murmurs/extra sounds, regular rate and rhythm Gastrointestinal: bowel sounds, non-tender, soft Extremities: No edema Neurological: confused Results Result Diagram: 06/12/17 0542 06/14/17 0446 Medications Medications Current Medications Ondansetron HCl (Zofran Inj) 4 mg Q6H PRN IV NAUSEA AND/OR VOMITING; Start at 02:30 Acetaminophen (Tylenol Tab) 650 mg Q6H PRN PO PAIN LEVEL 1-3 OR FEVER; Start 06/11/17 at 02:30 Docusate Sodium (Colace) 100 mg Q12H PRN PO CONSTIPATION; Start 06/11/17 at 02 :30 Bisacodyl (Dulcolax) 5 mg DAILY PRN PO CONSTIPATION; Start 06/11/17 at 02:30 Aspirin (Halfprin) 81 mg DAILY PO Last administered on 06/15/17 08:17; Admin Dose 81 MG; Start 06/11/17 at 09:00 Multivitamins Therapeutic (Theragran) 1 tab DAILY PO Last administered on 08:17; Admin Dose 1 TAB; Start 06/11/17 at 09:00 Risperidone 1 mg 1 mg DAILY PO Last administered on 06/15/17 08:17; Admin Dose 1 MG; Start 06/11/17 at 09:00 Ceftriaxone Sodium (Rocephin) 50 ml @ 100 mls/hr Q24H IVPB Last administered on 06/15/17 04:13; Admin Dose 100 MLS/HR; Start 06/11/17 at 04:30 Olanzapine 10 mg 10 mg DAILY PO Last administered on 06/15/17 08:17; Admin Dose 10 MG; Start 06/11/17 at 09:00 Sodium Chloride (NS) 1,000 ml @ 100 mls/hr Q10H IV Last administered on 20:00; Admin Dose 100 MLS/HR; Start 06/13/17 at 13:00 ZACHARIAH KAY Jun 15, 2017 09:22
--- NOTE | 2017-06-15 10:45 | RADRPT ---
PROCEDURE: Retroperitoneal US. CLINICAL INDICATION: Renal insufficiency TECHNIQUE: Multiple sonographic images of the kidneys and retroperitoneum were obtained. The imag es were reviewed on a PACS workstation. COMPARISON: No prior studies are available for comparison. FINDINGS: The right kidney measures 8.9 cm. The left kidney measures 9.1 cm. There is increased echogenicity of the kidneys. There is no evidence of hydronephrosis. The urinary bladder is moderately distended and unremarkable. IMPRESSION: Echogenic kidneys, consistent with medical renal disease. No evidence of hydronephrosis. RPTAT: AA .Salvador Musa MD, Date Time Electronically viewed and signed by .Salvador Musa MD, on 06/15/2017 10:44 .S/
[2017-06-15] MEDS: DOCUSATE SODIUM 100 MG CAP PO SCH ×2 (10:58→20:15)
[2017-06-15] MEDS: ENOXAPARIN 40 MG/0.4 ML SYG SC SCH (10:59)
[2017-06-15] MEDS: AMLODIPINE 2.5 MG TAB PO SCH (10:59)
--- NOTE | 2017-06-15 12:21 | CONS ---
DATE OF ADMISSION: 06/11/2017 DATE OF CONSULTATION: 06/15/2017 TYPE OF CONSULTATION: Nephrology. REASON FOR CONSULTATION: Chronic kidney disease and acute kidney injury. PHYSICIAN REQUESTING CONSULT: . HISTORY OF PRESENT ILLNESS: This is a 77-year-old female with a past medical history of chronic kid bhupinder disease with previous baseline creatinine of around 1.0 mg/dL, history of hypothyroidism, mauricio ia who presents to [facility] with altered level of consciousness. The patient wa s unable to provide history, on admission due to altered mental status. She apparently arrived from an outside facility. Upon arrival to the emergency room, the patient was noted to be altered. In the emergency room, the patient had laboratory data drawn, which showed a white count of 7.8, hemogl obin 12.4, platelet count of 265. The patient also had a sodium 144, BUN 26, creatinine 1.22. In [facility] emergency room, the patient was placed on IV fluids and IV antibiotics for severe sepsis due to u rinary tract infection. The patient was transferred to telemetry for evaluation. In terms of the patient's renal history, the patient had a previous creatinine of around 1.0 mg/dL a pproximately 3-4 months ago. On admission here, Patient's initial creatinine was 1.0 mg/dL which davalos s increased to 1.38 mg/dL during the hospital course. The patient has been noted to be hypotensive during initial admission and has been receiving antibiotic therapy. There have been no reports of h emoptysis, hematemesis, hematochezia. PAST MEDICAL HISTORY: As stated above, history of chronic kidney disease, history of dyslipidemia, history of diabetes, hypothyroidism, dementia, history of CVA, history of hypertension. PAST SURGICAL HISTORY: History of pacemaker. FAMILY HISTORY: Noncontributory. SOCIAL HISTORY: Does not drink, smoke or do drugs. MEDICATIONS: The patient's medications have been reviewed. REVIEW OF SYSTEMS: Unable to obtain as the patient is altered. Pertinent positives obtained by rev iewing medical records, speaking to hospital staff, stated in HPI, otherwise negative. PHYSICAL EXAMINATION: VITAL SIGNS: Blood pressure 141/67, respiration 18, pulse 66, temperature 97.9. HEENT: Head is normocephalic. NECK: Supple. HEART: Regular rate. LUNGS: Show diminished breath sounds at base. ABDOMEN: Soft, nontender to palpation, no rebound or guarding. EXTREMITIES: Negative for clubbing, cyanosis no edema. DERMATOLOGIC: No rashes. MUSCULOSKELETAL: No joint effusions. NEUROLOGIC: No change in exam. MEDICATIONS: The patient's medications have been reviewed. LABORATORY DATA: Currently shows a sodium 143, potassium 4.7, BUN 37, creatinine 1.38. White count 7.5, hemoglobin 9.3, hematocrit 33.3, platelet count 280. The patient's initial urinalysis reviewe d showed pyuria, no hematuria. IMAGING STUDIES: Have been reviewed. ASSESSMENT AND PLAN: This is a 77-year-old female who presents with: 1. Nonoliguric acute kidney injury on top of chronic kidney disease with a previous baseline creati nine 1.0 mg/dL. Etiology of acute kidney injury is secondary to hemodynamics, sepsis with possible tubular injury. Plan at this point is to repeat a urinalysis with microanalysis, check urine electr olytes, will check a renal ultrasound. Would otherwise, continue current treatment plan, supportive care, renally dose all medications, avoid nephrotoxins, continue gentle IV hydration. 2. Anemia. Monitor hemoglobin and hematocrit levels. 3. mineral bone disorder. Monitor calcium and phosphorus levels. 4. Sepsis secondary to urinary tract infection. Continue antibiotic regimen. 5. Acute encephalopathy on dementia. Etiology toxic metabolic. Continue to monitor. 6. Hypothyroidism. Continue Synthroid. 7. History of hypertension. Continue current medical management. Thank you, , for this interesting consultation. It will be a pleasure to follow the patien t with you throughout the hospital course. Dictated By: ARI PAINTER/CHARIS Conf#: [id number] DID#: [id number] CC: DR. ALVAREZ;*EndCC*
[2017-06-15 14:00] VITALS: BP 157/76; RESP 18
--- NOTE | 2017-06-15 17:43 | RADRPT ---
Echocardiogram Report Patient Name: MARK GARCIA Gender: Female Date: 1940 Study Date: 15-Jun-2017 Parcel Contractor: Mahin Shipley [facility] Location: 2236 Ref. Physician: ZACHARIAH KAY Quality: Adequate Procedures: Transthoracic echocardiogram with complete 2D, M-Mode, and doppler examination. Indications: Bacteremia/sepsis. 2D/M Mode Doppler Measurement Value Normal Ranges Measurement Value Normal Ranges LVIDd 2D 3.6 3.5 - 5.6 cm EZRA Vmax 1.4 cm2 LVIDs 2D 2.3 2.1 - 4.1 cm EZRA VTI 1.6 cm2 FS 2D 34.6 % AV Mean Jono 1.4 m/sec LVPWd 2D 1.7 0.6 - 1.1 cm AV Mean PG 9.0 mmHg IVSd 2D 1.6 0.6 - 1.1 cm AV Peak Jono 2.0 m/sec IVS/LVPW 2D 1.0 AV Peak PG 15.0 mmHg AoR Diam 2D 2.9 2.0 - 3.7 cm AV VTI 42.9 cm LA/Ao 2D 1 0 - 1 LVOT Mean Jono 0.7 m/sec EDV 2D 45.9 cm3 LVOT Mean PG 2.0 mmHg ESV 2D 12.8 cm3 LVOT Peak Jono 1.0 m/sec LA Dimen 2D 3.6 2.3 - 4.0 cm LVOT Peak PG 4.0 mmHg LVOT Diam 1.8 cm LVOT VTI 27.3 cm LVOT Area 2.5 cm2 MV E Peak Jono 1.0 m/sec MV A Peak Jono 2.0 m/sec MV E/A 0.5 MV PHT 202.0 msec MV Peak Jono 2.5 m/sec MV Peak PG 25.0 mmHg MV Mean Jono 1.2 m/sec MV Mean PG 8.0 mmHg MV Decel Time 475 msec MV Decel Mitchell 2 MV E/A 0.5 MV PHT Peak Jono 1.5 m/sec MV PHT 202.0 msec MV VTI 71.3 cm MVA PHT 1.1 cm2 MVA VTI 1.0 cm TR Peak Jono 2.8 m/sec TR Peak PG 31.0 mmHg RVSP 41.0 mmHg Findings Left Ventricle: Normal left ventricular cavity size. Severe concentric left ventricular hypertrophy. Ejection fraction is visually estimated at 65 %. Tissue Doppler/Mitral Doppler indices are consistent with impaired relaxation (Stage I diastolic dysfunction). Right Ventricle: Normal right ventricular size. Normal right ventricular systolic function. Pacemaker right heart. Left Atrium: There is mild enlargement of left atrium. Right Atrium: The right atrium is normal in size. Mitral Valve: Moderate mitral leaflet calcification. Severe mitral annular calcification. Trace mitral regurgitation. Moderate mitral stenosis. Mitral valve Max Velocity 2.50 m/sec. MaxPG 25.00 mmHg. MeanPG 8.00 mmHg. Mitral Valve Area by PHT1.09 cm2. Aortic Valve: No significant aortic stenosis or insufficiency. Aortic cusps appear moderately calcified. Tricuspid Valve: Normal appearance of the tricuspid valve. Estimated peak PA systolic pressure 41 mmHg. There is mild tricuspid regurgitation. Pulmonic Valve: Pulmonic valve not well visualized. There is trace pulmonic regurgitation. Pericardium: Normal pericardium with no significant pericardial effusion. Aorta: Normal aortic root. IVC: Normal size and normal respiratory collapse consistent with normal right atrial pressure. Conclusions 1.Normal left ventricular cavity size. Severe concentric left ventricular hypertrophy. Ejection fraction is visually estimated at 65 %. Tissue Doppler/Mitral Doppler indices are consistent with impaired relaxation (Stage I diastolic dysfunction). 2.There is mild enlargement of left atrium. 3.Moderate mitral leaflet calcification. Severe mitral annular calcification. Trace mitral regurgitation. Moderate mitral stenosis. Mitral valve Max Velocity 2.50 m/sec. MaxPG 25.00 mmHg. MeanPG 8.00 mmHg. Mitral Valve Area by PHT1.09 cm2. 4.No significant aortic stenosis or insufficiency. Aortic cusps appear moderately calcified. 5.Normal appearance of the tricuspid valve. Estimated peak PA systolic pressure 41 mmHg. There is mild tricuspid regurgitation. 6.Normal size and normal respiratory collapse consistent with normal right atrial pressure. Electronically Signed By: Lew Gonzalez 15-Jun-2017 17:42:32 -0800 Patient Name: MARK GARCIA Study Date: 15-Jun-2017 [id number]
[2017-06-15 17:55] LABS: ADD UMIC NO; UR ASCORBIC ACID NEGATIVE (NEGATIVE); UR BILIRUBIN (Dip) NEGATIVE (NEGATIVE); UR BLOOD (Dip) NEGATIVE (NEGATIVE); UR CLARITY CLEAR (CLEAR); UR COLOR STRAW (YELLOW); UR GLUCOSE (Dip) NEGATIVE (NEGATIVE); UR KETONES (Dip) NEGATIVE (NEGATIVE); UR LEUKOCYTE ESTERASE (Dip) NEGATIVE Leu/ul (NEGATIVE); UR NITRITE (Dip) NEGATIVE (NEGATIVE); UR SPECIFIC GRAVITY (Dip) 1.011 (1.003-1.030); UR TOTAL PROTEIN (Dip) NEGATIVE (NEGATIVE); UR UROBILINOGEN (Dip) NEGATIVE (NEGATIVE)
[2017-06-15] MEDS ORDERED: ATORVASTATIN 20 MG TAB ONE (19:39)
[2017-06-15 20:00] VITALS: BP 184/84; RESP 18
[2017-06-15] MEDS: ATORVASTATIN 20 MG TAB PO SCH (20:15)
--- NOTE | 2017-06-15 20:24 | PN ---
DATE: 06/15/2017 SUBJECTIVE: No acute changes. The patient is awake, looks comfortable. She is afebrile. LABORATORY: No labs this morning. MICROBIOLOGY: Blood culture on admission grew acinetobacter species, Enterococcus viridans and coag-negative Staph species. Urine culture grew Klebsiella pneumoniae. ANTIMICROBIALS: The patient is on IV Rocephin. PHYSICAL EXAMINATION: GENERAL: Well-developed, fragile, elderly woman who is in no distress. HEENT: Head atraumatic, normocephalic. Sclerae anicteric. Buccal mucosa dry. NECK: Supple. CHEST: Rise symmetrical. Breath sounds diminished to bases. HEART: S1, S2. ABDOMEN: Soft. Bowel tones present. EXTREMITIES: Without cyanosis. ASSESSMENT: 1. Persistent bacteremia with blood culture on previous admission back in September also grew acinetobacter species and Klebsiella pneumoniae in the urine. 2. Urinary tract infection. 3. Dementia. 4. Coronary artery disease with a history of permanent pacemaker. 5. Encephalopathy. 6. History of psychiatric problems. PLAN: The patient remains clinically unchanged, hemodynamically stable. We are going to order 2D echo, continue abx. Dictated By: ARLEEN RING DANCE ARTIST for LAURA LESTER MD NI/NTS Conf#: [id number] DID#: [id number] CC: IAN GARNICA MD;*EndCC* MTDD
[2017-06-15 21:20] VITALS: BP 173/90; PULSE 73
[2017-06-15] MEDS: hydrALAzine 20 MG INJ IV PRN (21:39)
[2017-06-16] VITALS (7 sets, daily range): BP systolic 134–177; BP diastolic 66–90; PULSE 76–83; RESP 18
[2017-06-16] MEDS: CEFTRIAXONE 1 GM/50 ML (PMX) 50 ML IVPB SCH (04:18)
[2017-06-16] MEDS: LEVOTHYROXINE 100 MCG TAB PO SCH (06:19)
[2017-06-16 06:50] LABS: BASOPHILS % 0.6 % (0.0-2.0); EOSINOPHILS # 0.1 10^3/ul (0.0-0.5); EOSINOPHILS % 2.2 % (0.0-7.0); HEMATOCRIT 33.2 % (37.0-47.0); HEMOGLOBIN 11.3 g/dl (12.0-16.0); LYMPHOCYTES # 1.2 10^3/ul (0.8-2.9); LYMPHOCYTES % 18.3 % (15.0-51.0); MEAN CORPUSCULAR HEMOGLOBIN 31.7 pg (29.0-33.0); MEAN CORPUSCULAR VOLUME 93.3 fl (82.0-101.0); MEAN PLATELET VOLUME 11.5 fl (7.4-10.4); MONOCYTE # 0.9 10^3/ul (0.3-0.9); MONOCYTES % 13.7 % (0.0-11.0); NEUTROPHIL # 4.2 10^3/ul (1.6-7.5); NEUTROPHILS % 64.7 % (39.0-77.0); PLATELET COUNT 267 10^3/UL (140-415); RED BLOOD COUNT 3.56 10^6/ul (4.20-5.40); RED CELL DISTRIBUTION WIDTH 12.7 % (11.5-14.5); WHITE BLOOD COUNT 6.5 10^3/ul (4.8-10.8)
[2017-06-16 07:10] LABS: CALCIUM 9.6 mg/dl (8.4-10.2); CREATININE 1.3 mg/dl (0.44-1.00); MAGNESIUM 1.7 mg/dl (1.7-2.5); PHOSPHORUS 4.3 mg/dl (2.5-4.9); POTASSIUM 4.3 mmol/L (3.5-5.1)
[2017-06-16] MEDS ORDERED: AMLO-145 PO (09:11)
[2017-06-16] MEDS ORDERED: METF500T PO (09:11)
[2017-06-16] MEDS: ASPIRIN (EC) 81 MG TAB PO SCH (09:25)
[2017-06-16] MEDS: DEXTROSE 5% 1,000 ML IV SCH (09:25)
[2017-06-16] MEDS: MULTIVITAMINS THERAPEUTIC TAB PO SCH (09:25)
[2017-06-16] MEDS: OLANZAPINE 5 MG TAB PO SCH (09:26)
[2017-06-16] MEDS: RISPERIDONE 1 MG TAB PO SCH (09:26)
[2017-06-16] MEDS: AMLODIPINE 2.5 MG TAB PO SCH (09:27)
[2017-06-16] MEDS: ENOXAPARIN 40 MG/0.4 ML SYG SC SCH (09:30)
[2017-06-16] MEDS ORDERED: MAGNESIUM SULFATE 1 GM/D5W 100 ML IVPB ONE (09:30)
--- NOTE | 2017-06-16 09:30 | DS ---
Date/Time of Note Date/Time of Note DATE: 06/16/17 TIME: 09:29 Discharge Summary Admission/Discharge Info Admit Date/Time Jun 11, 2017 at 01:49 Discharge Date/Time 06/16/17 Discharge Diagnosis 1. Status post sepsis with septic shock 2. Acinetobacter bacteremia, query source: on treatment 3. Urinary tract infection s/p treatment 4. Chronic kidney disease 5. Chronic dementia at baseline 6. Chronic hypothyroidism on thyroxine supplementation 7. Chronic hypertension 8. Prediabetes with A1C 6.1 Patient Condition: Stable Hospital Course 77-year-old female who was admitted for altered level of consciousness and was found to have sepsis secondary to urinary tract infection and bacteremia. She status post septic shock and has improved back to her baseline. She was seen by infectious disease because she had a recurrence of bacteremia for which the source was unclear. She had a 2D echo that showed no vegetations, ID did recommend WBC scan however after speaking with the j2ee consultant, we made a decision to hold off on this in view of the fact the patient does have chronic dementia, and it would not benefit her quality of life in any way. The patient is almost completely bedbound and focus should be on disease prevention and prevention of recurrent urinary tract infection at this time. If however patient does have another episode of Acinetobacter bacteremia then we could do a WBC scan at that time. As of today she remains in stable condition, she is tolerating a diet, as she is chronically confused and oriented only to self, was not able to find any family, and we were told that even at the facility where she resides there is no family that comes to visit or make decisions. Has oncology social worker was consulted and they are going to putting a request for his state appointed decision maker, however in the interim patient will be discharged back to facility in stable condition once cleared by ID and nephrology. Home Meds Active Scripts Amlodipine Besylate* (Norvasc*) 2.5 Mg Tablet, 2.5 MG PO DAILY for 30 Days, TAB Prov:SAEID PAGE MD 09/26/16 Reported Medications Metformin Hcl* (Metformin Hcl*) 1,000 Mg Tablet, 1000 MG PO BID WITH MEALS, #30 TAB 06/11/17 Olanzapine* (Zyprexa*) 10 Mg Tablet, 10 MG PO DAILY, #30 TAB 06/11/17 Levothyroxine Sodium* (Levothyroxine Sodium*) 100 Mcg Tablet, 100 MCG PO BEFORE BREAKFAST, #30 TAB 06/11/17 Simvastatin* (Zocor*) 40 Mg Tablet, 40 MG PO QHS, #30 TAB 09/23/16 Risperidone* (Risperidone*) 1 Mg Tablet, 1 MG PO DAILY, TAB 09/23/16 Multivitamins* (Theragran*) 1 Tab Tab, 1 TAB PO DAILY, TAB 09/23/16 Aspirin* (Aspirin* EC) 81 Mg Tablet.dr, 81 MG PO DAILY, TAB 09/23/16 Discontinued Reported Medications Olanzapine* (Zyprexa*) 5 Mg Tablet, 5 MG PO DAILY, #30 TAB 09/23/16 Metformin Hcl* (Metformin Hcl*) 500 Mg Tablet, 500 MG PO WITH BREAKFAST DINNE, # 60 TAB 09/23/16 Levothyroxine Sodium* (Levothyroxine Sodium*) 75 Mcg Tablet, 75 MCG PO BEFORE BREAKFAST, #30 TAB 09/23/16 Follow-up Plan Patient will be followed by her primary care physician at the facility, it is recommended that she be seen within 1-2 weeks. Primary Care Provider Not On Staff Doctor Time spent on discharge: > 30 minutes Pending Labs Laboratory Tests Test 06/15/17 12:05 06/16/17 06:06 Urine Color STRAW (YELLOW) Urine Clarity CLEAR (CLEAR) Urine pH 6.0 (5.0-9.0) Urine Specific [place] 1.011 (1.003-1.030) Urine Ketones NEGATIVEmg/dL (NEGATIVE) Urine Nitrite NEGATIVEmg/dL (NEGATIVE) Urine Bilirubin NEGATIVEmg/dL (NEGATIVE) Urine Urobilinogen NEGATIVEmg/dL (NEGATIVE) Urine Leukocyte Esterase NEGATIVELeu/ul (NEGATIVE) Urine Hemoglobin NEGATIVEmg/dL (NEGATIVE) Urine Random Creatinine 35.13mg/dl (20-320) Urine Random Sodium 119mmol/L (30-90) Urine Glucose NEGATIVEmg/dL (NEGATIVE) Urine Total Protein 16.0mg/dl (0.0-11.9) White Blood Count 6.510^3/ul (4.8-10.8) Red Blood Count 3.5610^6/ul (4.20-5.40) Hemoglobin 11.3g/dl (12.0-16.0) Hematocrit 33.2% (37.0-47.0) Mean Corpuscular Volume 93.3fl (82.0-101.0) Mean Corpuscular Hemoglobin 31.7pg (29.0-33.0) Mean Corpuscular Hemoglobin Concent 34.0g/dl (32.0-37.0) Red Cell Distribution Width 12.7% (11.5-14.5) Platelet Count 54034^3/UL (140-415) Mean Platelet Volume 11.5fl (7.4-10.4) Neutrophils % 64.7% (39.0-77.0) Lymphocytes % 18.3% (15.0-51.0) Monocytes % 13.7% (0.0-11.0) Eosinophils % 2.2% (0.0-7.0) Basophils % 0.6% (0.0-2.0) Nucleated Red Blood Cells % 0.0/100WBC (0.0-0.0) Neutrophils # 4.210^3/ul (1.6-7.5) Lymphocytes # 1.210^3/ul (0.8-2.9) Monocytes # 0.910^3/ul (0.3-0.9) Eosinophils # 0.110^3/ul (0.0-0.5) Basophils # 0.010^3/ul (0.0-0.1) Nucleated Red Blood Cells # 0.010^3/ul (0.0-0.0) Sodium Level 145mmol/L (135-144) Potassium Level 4.3mmol/L (3.5-5.1) Chloride Level 113mmol/L (97-110) Carbon Dioxide Level 23mmol/L (21-31) Anion Gap 13 (8-16) Blood Urea Nitrogen 35mg/dl (7-20) Creatinine 1.30mg/dl (0.44-1.00) Glucose Level 124mg/dl (70-220) Calcium Level 9.6mg/dl (8.4-10.2) Phosphorus Level 4.3mg/dl (2.5-4.9) Magnesium Level 1.7mg/dl (1.7-2.5) ZACHARIAH KAY Jun 16, 2017 09:30
[2017-06-16] MEDS: DOCUSATE SODIUM 100 MG CAP PO SCH ×2 (11:08→22:07)
--- NOTE | 2017-06-16 11:08 | PN ---
DATE: 06/16/2017 SUBJECTIVE: The patient is stable. No events overnight. No fevers, chills, nausea, vomiting. OBJECTIVE: VITAL SIGNS: Blood pressure is 137/66, pulse 74, respiration 18, temperature 97.6. HEENT: Head is normocephalic. NECK: Supple. HEART: Regular rate. LUNGS: Show diminished breath sounds at base. ABDOMEN: Soft, nontender to palpation without rebound or guarding. EXTREMITIES: Negative for clubbing, cyanosis, no edema. DERMATOLOGIC: No rashes. MUSCULOSKELETAL: No joint effusions. NEUROLOGIC: No change in exam. MEDICATIONS: The patient's medications have been reviewed. LABORATORY DATA: Shows a sodium 144, potassium 4.3, BUN 35, creatinine 1.30. White count 6.5, hemo globin 11.3, hematocrit 33.2, platelet count 267. The patient's urinalysis was reviewed. No active sediment. Protein creatinine ratio of 500 mg per gram of creatinine, FENa greater than 1%. Renal ultrasound shows echogenic kidneys consistent with medical renal disease, no evidence of obstruction . ASSESSMENT AND PLAN: 1. Nonoliguric acute kidney injury on top of chronic kidney disease with previous baseline creatini ne 1.0 mg/dL. Etiology of current acute kidney injury secondary to hemodynamics, possible acute tub ular necrosis. Patient's renal ultrasound was reviewed, showed no obstruction. Urinalysis shows no active sediment. The plan would be to continue current treatment plan, supportive care, renally do se all medications. 2. Hypernatremia. Encourage free water intake. We will change fluids to D5 water at 50 mL an hour and monitor. 3. Anemia. Monitor hemoglobin and hematocrit levels. 4. Mineral bone disorder. Monitor calcium and phosphorus levels. 5. Acute encephalopathy and dementia. Etiology is toxic metabolic. Continue to monitor. 6. Hypothyroidism. Continue Synthroid. 7. Hypertension. Continue current medical management. Dictated By: ARI PAINTER/CHARIS Conf#: [id number] DID#: [id number] CC: IAN GARNICA MD;*EndCC*
--- NOTE | 2017-06-16 11:08 | PDOCDIS ---
Discharge Instructions DIAGNOSIS Discharge Diagnosis Sepsis with septic shock 2/2 UTI and bacteremia CONDITION Patient Condition: Stable HOME CARE INSTRUCTIONS: Special Diet: 1800 NANETTE, 2G NA, MECH SOFT FOLLOW UP/APPOINTMENTS Follow-up Plan Patient will be followed by her primary care physician at the facility, it is recommended that she be seen within 1-2 weeks. OTHER ORDERS: Other Orders: Please ensure patient completes 9 more days of IV antibiotics. thanks! ZACHARIAH KAY Jun 16, 2017 11:08
[2017-06-16] MEDS ORDERED: LACTINEX PO (11:09)
[2017-06-16] MEDS: LACTOBACILLUS RHAMNOSUS CAP PO SCH ×2 (11:55→20:32)
--- NOTE | 2017-06-16 14:00 | CONS ---
Date/Time of Note Date/Time of Note DATE: 06/16/17 TIME: 13:59 Assessment/Plan Assessment/Plan Chief Complaint/Hosp Course SUBJECTIVE: No acute changes. The patient is awake, looks comfortable. No fevers. MICROBIOLOGY: Blood culture on admission grew acinetobacter species, Enterococcus viridans and coag-negative Staph species. Urine culture grew Klebsiella pneumoniae. ANTIMICROBIALS: The patient is on IV Rocephin. PHYSICAL EXAMINATION: GENERAL: Well-developed, fragile, elderly woman who is in no distress. HEENT: Head atraumatic, normocephalic. Sclerae anicteric. Buccal mucosa dry. NECK: Supple. CHEST: Rise symmetrical. Breath sounds diminished to bases. HEART: S1, S2. ABDOMEN: Soft. Bowel tones present. EXTREMITIES: Without cyanosis. ASSESSMENT: 1. Persistent bacteremia with blood culture on previous admission back in September also grew acinetobacter species and Klebsiella pneumoniae in the urine. 2. Urinary tract infection. 3. Dementia. 4. Coronary artery disease with a history of permanent pacemaker. 5. Encephalopathy. 6. History of psychiatric problems. PLAN: The patient remains stable. Repeat bld cx negative, continue abx, await for final workup. Will need to complete 2 weeks abx DW staff Problems: Consultation Date/Type/Reason Admit Date/Time Jun 11, 2017 at 01:49 Initial Consult Date Type of Consultation: id Exam/Review of Systems Vital Signs Vitals Vital Signs Date Time Temp Pulse Resp B/P Pulse Ox O2 Delivery O2 Flow Rate FiO2 06/16/17 08:14 97.6 74 18 137/66 97 Intake and Output 06/15/17 06/15/17 06/16/17 15:00 23:00 07:00 Intake Total 500 ml 1320 ml 1350 ml Balance 500 ml 1320 ml 1350 ml Results Result Diagram: 06/16/17 0606 06/16/17 0606 Results 24 hrs Laboratory Tests Test 06/16/17 06:06 06/16/17 10:05 White Blood Count 6.5 Red Blood Count 3.56 L Hemoglobin 11.3 L Hematocrit 33.2 L Mean Corpuscular Volume 93.3 Mean Corpuscular Hemoglobin 31.7 Mean Corpuscular Hemoglobin Concent 34.0 Red Cell Distribution Width 12.7 Platelet Count 267 Mean Platelet Volume 11.5 H Neutrophils % 64.7 Lymphocytes % 18.3 Monocytes % 13.7 H Eosinophils % 2.2 Basophils % 0.6 Nucleated Red Blood Cells % 0.0 Neutrophils # 4.2 Lymphocytes # 1.2 Monocytes # 0.9 Eosinophils # 0.1 Basophils # 0.0 Nucleated Red Blood Cells # 0.0 Sodium Level 145 H Potassium Level 4.3 Chloride Level 113 H Carbon Dioxide Level 23 Anion Gap 13 Blood Urea Nitrogen 35 H Creatinine 1.30 H Glucose Level 124 Calcium Level 9.6 Phosphorus Level 4.3 Magnesium Level 1.7 Thyroid Stimulating Hormone (TSH) 0.670 Free Thyroxine 1.70 Medications Medications Current Medications Ondansetron HCl (Zofran Inj) 4 mg Q6H PRN IV NAUSEA AND/OR VOMITING; Start at 02:30 Acetaminophen (Tylenol Tab) 650 mg Q6H PRN PO PAIN LEVEL 1-3 OR FEVER; Start 06/11/17 at 02:30 Bisacodyl (Dulcolax) 5 mg DAILY PRN PO CONSTIPATION; Start 06/11/17 at 02:30 Aspirin (Halfprin) 81 mg DAILY PO Last administered on 06/16/17 09:25; Admin Dose 81 MG; Start 06/11/17 at 09:00 Multivitamins Therapeutic (Theragran) 1 tab DAILY PO Last administered on 09:25; Admin Dose 1 TAB; Start 06/11/17 at 09:00 Risperidone 1 mg 1 mg DAILY PO Last administered on 06/16/17 09:26; Admin Dose 1 MG; Start 06/11/17 at 09:00 Ceftriaxone Sodium (Rocephin) 50 ml @ 100 mls/hr Q24H IVPB Last administered on 06/16/17 04:18; Admin Dose 100 MLS/HR; Start 06/11/17 at 04:30 Olanzapine (Zyprexa) 10 mg DAILY PO Last administered on 06/16/17 09:26; Admin Dose 10 MG; Start 06/11/17 at 09:00 Docusate Sodium (Colace) 100 mg Q12H PO Last administered on 06/16/17 11:08; Admin Dose 100 MG; Start 06/15/17 at 09:54 Enoxaparin Sodium (Lovenox) 30 mg DAILY SC Last administered on 06/16/17 09:30 ; Admin Dose 30 MG; Start 06/15/17 at 10:00 Amlodipine Besylate (Norvasc) 2.5 mg DAILY PO Last administered on 06/16/17 09 :27; Admin Dose 2.5 MG; Start 06/15/17 at 10:00 Atorvastatin Calcium (Lipitor) 20 mg DAILY@21 PO Last administered on 20:15; Admin Dose 20 MG; Start 06/15/17 at 21:00 Hydralazine HCl 10 mg 10 mg Q4H PRN IV ELEVATED BLOOD PRESSURE Last administered on 06/15/17 21:39; Admin Dose 10 MG; Start 06/15/17 at 21:30 Dextrose (D5W) 1,000 ml @ 50 mls/hr Q20H IV Last administered on 06/16/17 09: 25; Admin Dose 50 MLS/HR; Start 06/16/17 at 09:00 Lactobacillus Acidophilus/ Rhamnosus (Culturelle) 1 cap BID PO Last administered on 06/16/17 11:55; Admin Dose 1 CAP; Start 06/16/17 at 11:30 ARLEEN RING NP Jun 16, 2017 14:00
[2017-06-16] MEDS: ATORVASTATIN 20 MG TAB PO SCH (20:32)
[2017-06-16] MEDS: hydrALAzine 20 MG INJ IV PRN (20:44)
[2017-06-17 02:33] VITALS: BP 155/70; RESP 18
[2017-06-17] MEDS: CEFTRIAXONE 1 GM/50 ML (PMX) 50 ML IVPB SCH (04:48)
[2017-06-17] MEDS: DEXTROSE 5% 1,000 ML IV SCH (06:03)
[2017-06-17] MEDS: LEVOTHYROXINE 100 MCG TAB PO SCH (06:05)
[2017-06-17 06:10] LABS: CALCIUM 10.3 mg/dl (8.4-10.2); CREATININE 1.48 mg/dl (0.44-1.00); PHOSPHORUS 4.1 mg/dl (2.5-4.9); POTASSIUM 4.3 mmol/L (3.5-5.1)
[2017-06-17 07:27] VITALS: BP 138/75; RESP 20
[2017-06-17] MEDS: DOCUSATE SODIUM 100 MG CAP PO SCH (10:34)
[2017-06-17] MEDS: LACTOBACILLUS RHAMNOSUS CAP PO SCH (10:35)
[2017-06-17] MEDS: MULTIVITAMINS THERAPEUTIC TAB PO SCH (10:35)
[2017-06-17] MEDS: OLANZAPINE 5 MG TAB PO SCH (10:35)
[2017-06-17] MEDS: RISPERIDONE 1 MG TAB PO SCH (10:35)
[2017-06-17] MEDS: ASPIRIN (EC) 81 MG TAB PO SCH (10:35)
[2017-06-17] MEDS: AMLODIPINE 2.5 MG TAB PO SCH (10:35)
[2017-06-17] MEDS: ENOXAPARIN 40 MG/0.4 ML SYG SC SCH (10:36)
--- NOTE | 2017-06-17 11:02 | PN ---
DATE: 06/17/2017 SUBJECTIVE: The patient is stable. No events overnight. No fevers, chills, nausea, vomiting. OBJECTIVE: VITAL SIGNS: Blood pressure is 138/75, respiratory rate 20, pulse 81, temperature 97.6. HEENT: Head is normocephalic. NECK: Supple. HEART: Regular rate. LUNGS: Show diminished breath sounds at the base. ABDOMEN: Soft, nontender to palpation. No rebound or guarding. EXTREMITIES: Negative for clubbing, cyanosis. Trace edema. DERMATOLOGIC: No rashes. MUSCULOSKELETAL: No joint effusions. NEUROLOGIC: No change in exam. MEDICATIONS: The patient's medications have been reviewed. LABORATORY DATA: Showed sodium 144, potassium 4.3, BUN 34, creatinine 1.48, calcium 10.3. White co unt 6.5, hemoglobin 11.3, hematocrit 33.2, platelet count is 267. ASSESSMENT AND PLAN: 1. Nonoliguric acute kidney injury on top of chronic kidney, with previous baseline creatinine 1.0 mg/dL. Etiology of acute kidney injury is secondary to hemodynamics, possible septic acute kidney i njury. Possible acute tubular necrosis. The patient's renal function is fluctuating, but has decli megha in the last 24 to 48 hours. At this point, the patient may still be in injury phase of acute tu bular necrosis. We will continue current treatment plan. Continue antibiotic therapy. Continue vasquez pportive care. Renally dose all medications. 2. Hypernatremia. Continue D5 water. 3. Anemia. Continue to monitor hemoglobin and hematocrit levels. 4. Metabolic syndrome. Monitor calcium and phosphorus levels. 5. Acute encephalopathy and dementia. Etiology is toxic and metabolic. Continue to monitor. 6. Hypothyroidism. Continue Synthroid. 7. Hypertension. Continue current blood pressure regimen. Dictated By: ARI PAINTER/CHARIS Conf#: [id number] DID#: [id number]
[2017-06-17] MEDS ORDERED: LEVO250T9 PO (13:16)
--- NOTE | 2017-06-17 14:11 | DS ---
Date/Time of Note Date/Time of Note DATE: 06/17/17 TIME: 14:10 Discharge Summary Admission/Discharge Info Admit Date/Time Jun 11, 2017 at 01:49 Discharge Date/Time 06/17/17 . Discharge Diagnosis 1. Status post sepsis with septic shock 2. Acinetobacter bacteremia, query source: on treatment 3. Urinary tract infection s/p treatment 4. Chronic kidney disease 5. Chronic dementia at baseline 6. Chronic hypothyroidism on thyroxine supplementation 7. Chronic hypertension 8. Prediabetes with A1C 6.1 Patient Condition: Stable Consults ID: Lety . Hospital Course 77-year-old female who was admitted for altered level of consciousness and was found to have sepsis secondary to urinary tract infection and bacteremia. She status post septic shock and has improved back to her baseline. She was seen by infectious disease because she had a recurrence of bacteremia for which the source was unclear. She had a 2D echo that showed no vegetations, ID did recommend WBC scan however after speaking with the acquisition consultant, we made a decision to hold off on this in view of the fact the patient does have chronic dementia, and it would not benefit her quality of life in any way. The patient is almost completely bedbound and focus should be on disease prevention and prevention of recurrent urinary tract infection at this time. If however patient does have another episode of Acinetobacter bacteremia then we could do a WBC scan at that time. As of today she remains in stable condition, she is tolerating a diet, as she is chronically confused and oriented only to self, was not able to find any family, and we were told that even at the facility where she resides there is no family that comes to visit or make decisions. Has social media intern was consulted and they are going to putting a request for his state appointed decision maker, however in the interim patient will be discharged back to facility in stable condition once cleared by ID and nephrology. ADDENDUM: The patient's discharge was held yesterday because The [id number] where she resides stated they could not handle intravenous antibiotics. However the patient remains in stable condition, physical examination and vital signs remain stable. We spoke with infectious disease, her antibiotic regimen has been switched to oral, and so patient hopefully will be discharged today with previous instructions. Home Meds Active Scripts Amlodipine Besylate* (Norvasc*) 2.5 Mg Tablet, 2.5 MG PO DAILY for 30 Days, TAB Prov:SAEID PAGE MD 09/26/16 Reported Medications Metformin Hcl* (Metformin Hcl*) 1,000 Mg Tablet, 1000 MG PO BID WITH MEALS, #30 TAB 06/11/17 Olanzapine* (Zyprexa*) 10 Mg Tablet, 10 MG PO DAILY, #30 TAB 06/11/17 Levothyroxine Sodium* (Levothyroxine Sodium*) 100 Mcg Tablet, 100 MCG PO BEFORE BREAKFAST, #30 TAB 06/11/17 Simvastatin* (Zocor*) 40 Mg Tablet, 40 MG PO QHS, #30 TAB 09/23/16 Risperidone* (Risperidone*) 1 Mg Tablet, 1 MG PO DAILY, TAB 09/23/16 Multivitamins* (Theragran*) 1 Tab Tab, 1 TAB PO DAILY, TAB 09/23/16 Aspirin* (Aspirin* EC) 81 Mg Tablet.dr, 81 MG PO DAILY, TAB 09/23/16 Discontinued Reported Medications Olanzapine* (Zyprexa*) 5 Mg Tablet, 5 MG PO DAILY, #30 TAB 09/23/16 Metformin Hcl* (Metformin Hcl*) 500 Mg Tablet, 500 MG PO WITH BREAKFAST DINNE, # 60 TAB 09/23/16 Levothyroxine Sodium* (Levothyroxine Sodium*) 75 Mcg Tablet, 75 MCG PO BEFORE BREAKFAST, #30 TAB 09/23/16 Follow-up Plan Patient will be followed by her primary care physician at the facility, it is recommended that she be seen within 1-2 weeks. Primary Care Provider Not On Staff Doctor Time spent on discharge: > 30 minutes Pending Labs Laboratory Tests Test 06/17/17 04:36 Sodium Level 144mmol/L (135-144) Potassium Level 4.3mmol/L (3.5-5.1) Chloride Level 108mmol/L (97-110) Carbon Dioxide Level 27mmol/L (21-31) Anion Gap 13 (8-16) Blood Urea Nitrogen 34mg/dl (7-20) Creatinine 1.48mg/dl (0.44-1.00) Glucose Level 146mg/dl (70-220) Calcium Level 10.3mg/dl (8.4-10.2) Phosphorus Level 4.1mg/dl (2.5-4.9) Magnesium Level 2.0mg/dl (1.7-2.5) ZACHARIAH KAY Jun 17, 2017 14:11
[2017-06-17 16:02] VITALS: BP 152/72; RESP 18
--- NOTE | 2017-06-17 18:47 | CONS ---
Date/Time of Note Date/Time of Note DATE: 06/17/17 TIME: 18:46 Assessment/Plan Assessment/Plan Chief Complaint/Hosp Course SUBJECTIVE: No acute changes. The patient is awake, looks comfortable. No fevers. MICROBIOLOGY: Blood culture on admission grew acinetobacter species, Enterococcus viridans and coag-negative Staph species. Urine culture grew Klebsiella pneumoniae. ANTIMICROBIALS: Rocephin. PHYSICAL EXAMINATION: GENERAL: Well-developed, fragile, elderly woman who is in no distress. HEENT: Head atraumatic, normocephalic. Sclerae anicteric. Buccal mucosa dry. NECK: Supple. CHEST: Rise symmetrical. Breath sounds diminished to bases. HEART: S1, S2. ABDOMEN: Soft. Bowel tones present. EXTREMITIES: Without cyanosis. ASSESSMENT: 1. Recurrent bacteremia with blood culture on previous admission back in September also grew acinetobacter species and Klebsiella pneumoniae in the urine. 2. Urinary tract infection. 3. Dementia. 4. Coronary artery disease with a history of permanent pacemaker. 5. Encephalopathy. 6. History of psychiatric problems. PLAN: The patient remains stable. Repeat bld cx negative, 2D ECHO negative, continue abx, anticipate dc on oral Levaquin to complete 2 weeks abx [facility] staff Problems: Consultation Date/Type/Reason Admit Date/Time Jun 11, 2017 at 01:49 Type of Consultation: id Exam/Review of Systems Vital Signs Vitals Vital Signs Date Time Temp Pulse Resp B/P Pulse Ox O2 Delivery O2 Flow Rate FiO2 06/17/17 16:02 97.9 97 18 152/72 98 Intake and Output 06/16/17 06/16/17 06/17/17 15:00 23:00 07:00 Intake Total 500 ml 750 ml 950 ml Balance 500 ml 750 ml 950 ml Results Result Diagram: 06/16/17 0606 06/17/17 0436 Results 24 hrs Laboratory Tests Test 06/17/17 04:36 Sodium Level 144 Potassium Level 4.3 Chloride Level 108 Carbon Dioxide Level 27 Anion Gap 13 Blood Urea Nitrogen 34 H Creatinine 1.48 H Glucose Level 146 Calcium Level 10.3 H Phosphorus Level 4.1 Magnesium Level 2.0 Medications Medications Current Medications Ondansetron HCl (Zofran Inj) 4 mg Q6H PRN IV NAUSEA AND/OR VOMITING; Start at 02:30 Acetaminophen (Tylenol Tab) 650 mg Q6H PRN PO PAIN LEVEL 1-3 OR FEVER; Start 06/11/17 at 02:30 Bisacodyl (Dulcolax) 5 mg DAILY PRN PO CONSTIPATION; Start 06/11/17 at 02:30 Aspirin (Halfprin) 81 mg DAILY PO Last administered on 06/17/17 10:35; Admin Dose 81 MG; Start 06/11/17 at 09:00 Multivitamins Therapeutic (Theragran) 1 tab DAILY PO Last administered on 10:35; Admin Dose 1 TAB; Start 06/11/17 at 09:00 Risperidone 1 mg 1 mg DAILY PO Last administered on 06/17/17 10:35; Admin Dose 1 MG; Start 06/11/17 at 09:00 Ceftriaxone Sodium (Rocephin) 50 ml @ 100 mls/hr Q24H IVPB Last administered on 06/17/17 04:48; Admin Dose 100 MLS/HR; Start 06/11/17 at 04:30 Olanzapine (Zyprexa) 10 mg DAILY PO Last administered on 06/17/17 10:35; Admin Dose 10 MG; Start 06/11/17 at 09:00 Docusate Sodium (Colace) 100 mg Q12H PO Last administered on 06/17/17 10:34; Admin Dose 100 MG; Start 06/15/17 at 09:54 Enoxaparin Sodium (Lovenox) 30 mg DAILY SC Last administered on 06/17/17 10:36 ; Admin Dose 30 MG; Start 06/15/17 at 10:00 Amlodipine Besylate (Norvasc) 2.5 mg DAILY PO Last administered on 06/17/17 10 :35; Admin Dose 2.5 MG; Start 06/15/17 at 10:00 Atorvastatin Calcium (Lipitor) 20 mg DAILY@21 PO Last administered on 20:32; Admin Dose 20 MG; Start 06/15/17 at 21:00 Hydralazine HCl 10 mg 10 mg Q4H PRN IV ELEVATED BLOOD PRESSURE Last administered on 06/16/17 20:44; Admin Dose 10 MG; Start 06/15/17 at 21:30 Dextrose (D5W) 1,000 ml @ 50 mls/hr Q20H IV Last administered on 06/17/17 06: 03; Admin Dose 50 MLS/HR; Start 06/16/17 at 09:00 Lactobacillus Acidophilus/ Rhamnosus (Culturelle) 1 cap BID PO Last administered on 06/17/17t 10:35; Admin Dose 1 CAP; Start 06/16/17 at 11:30 ARLEEN RING NP Jun 17, 2017 18:47
[2017-06-18] MEDS ORDERED: LEVO100T87 PO (14:12)
[2017-06-18] MEDS ORDERED: ASPI-664 PO (14:12)
[2017-06-18] MEDS ORDERED: MULTI PO (14:12)
[2017-06-18] MEDS ORDERED: METF500T PO (14:12)
[2017-06-18] MEDS ORDERED: AMLO-145 PO (14:12)
[2017-06-18] MEDS ORDERED: LACTINEX PO (14:12)
[2017-06-18] MEDS ORDERED: LEVO500S PO (14:14)
== END 2017-06-17 19:06 | disposition home or self-care (01) | DRG 871 ==
LOC: E/R 23:56 → MS3 06-11 01:49 → PP2 06-11 19:50
PROVIDERS: ADMIT Family Medicine; ATTEND Family Medicine
DX: A41.59 Other Gram-negative sepsis (principal); G92 Toxic encephalopathy; R65.21 Severe sepsis with septic shock; N17.9 Acute kidney failure, unspecified; R78.81 Bacteremia; N39.0 Urinary tract infection, site not specified; E87.0 Hyperosmolality and hypernatremia; B96.1 Klebsiella pneumoniae [K. pneumoniae] as the cause of diseases classified elsewhere; F03.90 Unspecified dementia, unspecified severity, without behavioral disturbance, psychotic disturbance, mood disturbance, and anxiety; R41.82 Altered mental status, unspecified; F99 Mental disorder, not otherwise specified; E03.9 Hypothyroidism, unspecified; Z86.73 Personal history of transient ischemic attack (TIA), and cerebral infarction without residual deficits; I25.10 Atherosclerotic heart disease of native coronary artery without angina pectoris; D64.9 Anemia, unspecified; Z95.0 Presence of cardiac pacemaker; I12.9 Hypertensive chronic kidney disease with stage 1 through stage 4 chronic kidney disease, or unspecified chronic kidney disease; N18.9 Chronic kidney disease, unspecified; M89.8X9 Other specified disorders of bone, unspecified site; E83.9 Disorder of mineral metabolism, unspecified; R73.03 Prediabetes; E88.81 Metabolic syndrome and other insulin resistance
CPT/HCPCS: 36415; 70450; 71010; 76775; 80048; 80053; 80061; 80306; 80307; 81001; 81003; 82043; 83036; 83605; 83735; 84100; 84155; 84300; 84439; 84443; 84481; 84484; 85025; 85610; 85730; 87040; 87045; 87081; 87086; 92610; 93005; 93306; 96365; 96366; 96368; J0360; J0696; J1650; J2543; J3370; J3475; J7030; J7070